=== PATIENT | male | born 1980 ===

== ENCOUNTER 2020-04-19 09:20 | Emergency (ER) | payer MEDICAID, SELFPAY ==
[2020-04-19 09:28] VITALS: BP 107/76; PULSE 94; RESP 14; TEMP 36.3; O2SAT 96; BMI 25.7
--- NOTE | 2020-04-19 09:44 | PC.NURSE ---
pt changed over by security. placed in hospital clothes. belongings to [facility].
--- NOTE | 2020-04-19 11:17 | MHC.RECOVSUP ---
Recovery Support note: Patient is a 40 year old Burmese speaking male who presented to [facility] via EMS after an accidental overdose. Patient reported he is interested in going to detox. Patient reports he is not on any medication at this time. Patient information has been sent to [facility]. They report that they have an admission open at 1500 and that patient will be able to get the bed if there are no issues with his labs. This speech writer will fax patient labs to [facility] (Fax - [phone]) when they are available.
--- NOTE | 2020-04-19 11:32 | PC.NURSE ---
plan for pt to go to detox
--- NOTE | 2020-04-19 12:16 | ED_ITS ---
HPI - Overdose General Chief Complaint: Overdose Stated Complaint: od Time Seen by Provider: 04/19/20 10:53 Source: EMS Mode of arrival: EMS Limitations: no limitations History of Present Illness HPI Narrative: 40-year-old male with history of anxiety disorder, depression, hepatitis and history of heroin abuse family called EMS after becoming unresponsive upon EMS arrival patient was unresponsive and respiratory rate of 6 a given Narcan with immediate response admitted to doing 5 bags of heroin for recreation and to ?get high? he denies any intentional overdose or SI HI. Patient has history of similar visits in the past. POC 202 for EMS. complaint: accidental overdose Timing confirmed by: spouse and family member Intent: other (To get high) Treatments Prior to Arrival: none Related Data Allergies Allergy/AdvReac Type Severity Reaction Status Date / Time No Known Allergies Allergy Unverified 12/07/19 19:39 [No Known Allergies*] Review of Systems Review of Systems: Constitutional: No Weight loss, No Fever, No Chills, No Night Sweats, No Fatigue, No Malaise ENT/Mouth: No Hearing loss, No Ear Pain, No Nasal Congestion, No Sinus Pain, No Hoarseness, No sore throat, No Rhinorrhea, No Swallowing Difficulty . Eyes: No Eye Pain, No Swelling, No Redness, No Foreign Body, No Discharge, No Vision Changes Cardiovascular: No Chest Pain, No SOB, No Dyspnea on Exertion, No Orthopnea, No Edema, No Palpitations Respiratory: No Cough, No Sputum, No Wheezing, No Smoke Exposure, No Dyspnea Gastrointestinal: No Nausea, No Vomiting, No Diarrhea, No Constipation, No abdominal Pain, No Hematochezia, No Melena Genitourinary: No Dysuria, No Urinary Frequency, No Hematuria, No Urinary Incontinence, No Urgency, No Flank Pain Musculoskeletal: No joint pain, No Myalgias, No Joint Swelling Skin: No Skin Lesions, No rash Neuro: No Weakness, No Numbness, No Paresthesias, No Loss of Consciousness, No Dizziness, No Headache Psych: No Social Issues Heme/Lymph: No Bruising, No Bleeding,No Lymphadenopathy Endocrine: No Polyuria, No Polydipsia, No Temperature Intolerance Yes all other systems are reviewed and are negative PMFSH Social History Social History Alcohol intake: unknown Smoking Status: Unknown if ever smoked Use of substances other than those prescribed or required for medical reasons: Refusing to respond Substance Use Type: Heroin Advance Directives: No Advance Directives Information Provided: Yes Physical Exam Vital Signs: Vital Signs: Last Vital Signs Temp 97.3 F 04/19/20 09:28 Pulse 94 04/19/20 09:28 Resp 14 04/19/20 09:28 BP 107/76 04/19/20 09:28 Pulse Ox 96 04/19/20 09:28 Body Mass Index 25.7 Reviewed Const: General: cooperative; No acute distress or intoxicated appearing Nutritional Appearance: average body habitus Orientation/consciousness: patient oriented x3 HENMT: Head: Yes normal to inspection Ears: hearing grossly normal bilaterally Eyes: General: appearance normal, both eyes and all related structures Vis ual Cloud: normal visual cloud by confrontation Neck: Neck: Yes normal visual inspection, No positive Brudzinski's sign, No positive Kernig's sign and No tender Thyroid: Thyroid normal Chest: Chest palpation & inspection: normal inspection of the chest Resp: Effort & Inspection: normal respiratory effort Auscultation: clear to auscultation bilaterally Cardio: Jugular venous distension: no JVD Rhythm: regular rhythm Heart sounds: S1 normal heart sound present and S2 normal heart sound present GI: Inspection: Yes normal to inspection Percussion: Yes normal to percussion Auscultation: normal bowel sounds : General: Yes no CVA tenderness Back/Spine/Pelvis: Back: no CVA tenderness Skin: General skin exam: no rashes or lesions noted Neuro: General: patient oriented x3 Extrem: General: Yes normal to inspection Course Course Course Narrative: In review 40-year-old male with history of anxiety disorder, depression, hepatitis and history of heroin abuse presenting with intentional overdose reports use 5 bags for recreational use. Did require 2 mg of IV Narcan for reversal with immediate response awoke alert and oriented x3. Upon arrival initially refused to provide any history admits now to using 5 bags. Initially declined detox services but after my conversation of these agreeable. Will monitor for 1 hour and discuss case with substance abuse counselor to see if he can get him directly to detox from here. Reevaluation(s) Reevaluation #1: Case discussed with John substance use counselor has a bed at [facility] for 1500 requests that we do some screening labs patient offers no complaints. Screening labs as well as COVID-19 ordered. Reevaluation #2: Screening labs shows leukocytosis likely from the OD and not infection pathology. Chest x-ray negative. slightly elevated LFTs has history of hepatitis he offers no complaints of pain, T bili/lipase within normal limits. Will need further monitoring evaluation this on an outpatient basis. Medically clear for detox intake. Reevaluation #3: During his intake with the detox Center he reported desire for SI and told him that the OD was intentional does feeling the intake. I was informed of this by [facility] the substance abuse counselor patient will now require crisis evaluation. [facility] observation and crisis evaluation. Additional Reevaluation(s): Sign out to night team pending crisis evaluation and disposition. MDM - Overdose Medical Records Attestation: I reviewed the patient's medical records. Lab Data Attestation: I reviewed the patient's lab results. Result diagrams: 04/19/20 12:30 04/19/20 12:30 Labs: Lab Results 04/19/20 04/19/20 04/19/20 Range/Units 12:30 12:30 12:30 WBC 15.9 H (4.8-10.8) X10*3/uL RBC 4.34 L (4.60-5.80) X10*6/uL Hgb 12.4 L (14.0-18.0) g/dl Hct 39.9 L (42-52) % MCV 91.9 (80-98) fL MCH 28.6 (27.0-33.0) pg MCHC 31.1 (31.0-36.0) g/dl RDW 13.8 (11.0-16.0) % Plt Count 210 (160-400) X10*3/uL MPV 9.2 L (9.4-12.4) fL Immature Gran % (Auto) 0.4 (0.0-0.4) % Neut % (Auto) 88.5 H (45-73) % Lymph % (Auto) 5.9 L (20-40) % Childress % (Auto) 5.0 (2-11) % Eos % (Auto) 0.1 (0-4) % Baso % (Auto) 0.1 (0-2) % Lymph # (Auto) 0.9 L (1.2-4.9) X10*3/uL Childress # (Auto) 0.8 (0.1-1.2) X10*3/uL Eos # (Auto) 0.0 (0.0-0.4) X10*3/uL Baso # (Auto) 0.0 (0.0-0.2) X10*3/uL Abs Immat Gran (auto) 0.06 H (0.00-0.03) X10*3/uL Absolute Neuts (auto) 14.1 H (2.0-8.3) X10*3/uL Absolute Nucleated RBC 0.000 (0.0-0.012) X10*3/uL Nucleated RBC % (auto) 0.0 (0.0-0.2) /100WBC Sodium 142 (135-145) mmol/L Potassium 4.4 (3.3-5.1) mmol/L Chloride 106 (96-108) mmol/L Carbon Dioxide 29 (22-29) mmol/L Anion Gap 11 L (12-20) BUN 26 H (9-16) mg/dL Creatinine 1.31 (0.5-1.4) mg/dL Estim Creat Clear Calc 62.1 Estimated GFR > 60 Random Glucose 87 (60-115) mg/dL Calcium 8.4 (8.4-10.2) mg/dL Total Bilirubin 0.4 (0.0-1.0) mg/dL AST 269 H (5-37) U/L ALT 275 H (0-40) U/L Alkaline Phosphatase 94 (39-117) U/L Total Protein 6.2 L (6.5-8.0) g/dL Albumin 3.9 (3.5-5.0) g/dL Lipase 26 (8-78) U/L Urine Opiates Screen (Not Detect) Ur Barbiturates Screen (Not Detect) Ur Phencyclidine Scrn (Not Detect) Ur Amphetamines Screen (Not Detect) U Benzodiazepines Scrn (Not Detect) Urine Cocaine Screen (Not Detect) U Marijuana (THC) Screen (Not Detect) Ethyl Alcohol mg/dL COVID-19 (THU) Negative (Negative) COVID-19 Clin Com See Note 04/19/20 04/19/20 Range/Units 12:30 15:16 WBC (4.8-10.8) X10*3/uL RBC (4.60-5.80) X10*6/uL Hgb (14.0-18.0) g/dl Hct (42-52) % MCV (80-98) fL MCH (27.0-33.0) pg MCHC (31.0-36.0) g/dl RDW (11.0-16.0) % Plt Count (160-400) X10*3/uL MPV (9.4-12.4) fL Immature Gran % (Auto) (0.0-0.4) % Neut % (Auto) (45-73) % Lymph % (Auto) (20-40) % Childress % (Auto) (2-11) % Eos % (Auto) (0-4) % Baso % (Auto) (0-2) % Lymph # (Auto) (1.2-4.9) X10*3/uL Childress # (Auto) (0.1-1.2) X10*3/uL Eos # (Auto) (0.0-0.4) X10*3/uL Baso # (Auto) (0.0-0.2) X10*3/uL Abs Immat Gran (auto) (0.00-0.03) X10*3/uL Absolute Neuts (auto) (2.0-8.3) X10*3/uL Absolute Nucleated RBC (0.0-0.012) X10*3/uL Nucleated RBC % (auto) (0.0-0.2) /100WBC Sodium (135-145) mmol/L Potassium (3.3-5.1) mmol/L Chloride (96-108) mmol/L Carbon Dioxide (22-29) mmol/L Anion Gap (12-20) BUN (9-16) mg/dL Creatinine (0.5-1.4) mg/dL Estim Creat Clear Calc Estimated GFR Random Glucose (60-115) mg/dL Calcium (8.4-10.2) mg/dL Total Bilirubin (0.0-1.0) mg/dL AST (5-37) U/L ALT (0-40) U/L Alkaline Phosphatase (39-117) U/L Total Protein (6.5-8.0) g/dL Albumin (3.5-5.0) g/dL Lipase (8-78) U/L Urine Opiates Screen POSITIVE H (Not Detect) Ur Barbiturates Screen Not Detected (Not Detect) Ur Phencyclidine Scrn Not Detected (Not Detect) Ur Amphetamines Screen Not Detected (Not Detect) U Benzodiazepines Scrn Not Detected (Not Detect) Urine Cocaine Screen POSITIVE H (Not Detect) U Marijuana (THC) Screen Not Detected (Not Detect) Ethyl Alcohol < 10 mg/dL COVID-19 (THU) (Negative) COVID-19 Clin Com Imaging Data Chest x-ray: Radiologist's impression: [facility] [place] [id number] ReportSigned Patient: Javad Conklin PMR#: [id number]: [id number]:[id number]/Sex: 40 / MADM Date: 04/19/20Loc: DAVID.EDAttending Dr: Ordering Physician: Cachorro Worley NP Date of Service: 04/19/20 Procedure(s): XR chest 1V Accession Number(s): [id number] cc: Cachorro Worley SUPERVISOR [employer]IN MACHINE~ EXAMINATION: XR CHEST CLINICAL INFORMATION: OD COMPARISON: None TECHNIQUE: Frontal view of the chest was obtained. FINDINGS: The lungs are well-expanded and clear of acute process. The heart size and pulmonary vascularity is normal. No gross bony abnormality seen. XR/XR chest 1V IMPRESSION: Unremarkable chest exam. Dictated By:LANNY CHANCE MDSigned By:<Electronically signed by LANNY CHANCE MD in OV>04/19/20 1442 DD/ 1343TD/TT: Conservation [employer] Heritage Architect: [facility] Discharge Plan Discharge Clinical Impression: Drug overdose, Depression
[2020-04-19 12:40] LABS: MANUAL DIFF FLAG NO
[2020-04-19 12:42] LABS: Basophils Percent Auto 0.1 % (0-2); Eosinophils Percent Auto 0.1 % (0-4); Hematocrit 39.9 % (42-52); Hemoglobin 12.4 g/dl (14.0-18.0); Imm Gran Abs Auto 0.06 X10*3/uL (0.00-0.03); Imm Gran Pct Auto 0.4 % (0.0-0.4); Lymphocytes Absolute Auto 0.9 X10*3/uL (1.2-4.9); Lymphocytes Percent Auto 5.9 % (20-40); Mean Corpuscular HGB Conc 31.1 g/dl (31.0-36.0); Mean Corpuscular Hemoglobin 28.6 pg (27.0-33.0); Mean Corpuscular Volume 91.9 fL (80-98); Mean Platelet Volume 9.2 fL (9.4-12.4); Monocytes Absolute Auto 0.8 X10*3/uL (0.1-1.2); Neutrophils Absolute Auto 14.1 X10*3/uL (2.0-8.3); Neutrophils Percent Auto 88.5 % (45-73); Platelet Count 210 X10*3/uL (160-400); Red Blood Count 4.34 X10*6/uL (4.60-5.80); Red Cell Distribution Width 13.8 % (11.0-16.0); White Blood Count 15.9 X10*3/uL (4.8-10.8)
[2020-04-19 13:20] LABS: COVID-19 Test Negative (Negative)
[2020-04-19 13:21] LABS: Ethanol < 10 mg/dL
[2020-04-19 13:28] LABS: Alanine Aminotransferase 275 U/L (0-40); Albumin Level 3.9 g/dL (3.5-5.0); Alkaline Phosphatase 94 U/L (39-117); Anion Gap 11 (12-20); Aspartate Amino Transferase 269 U/L (5-37); Bilirubin Total 0.4 mg/dL (0.0-1.0); Blood Urea Nitrogen 26 mg/dL (9-16); Calcium 8.4 mg/dL (8.4-10.2); Carbon Dioxide 29 mmol/L (22-29); Chloride 106 mmol/L (96-108); Creatinine Clr Calc Pharmacy 62.1; Estimated Glomerular Filt Rate > 60; Glucose Random 87 mg/dL (60-115); Potassium 4.4 mmol/L (3.3-5.1); Sodium 142 mmol/L (135-145); Total Protein 6.2 g/dL (6.5-8.0)
--- NOTE | 2020-04-19 13:29 | MHC.RECOVSUP ---
Recovery Support note: Patient completed phone intake with [facility]. Patient reported to intake that he has AH/VH/SI. Patient reportedly said he intentionally overdosed yesterday and is consistently using enough heroin to overdose. Patient reported paranoia and had no future orientation. [facility] recommends that patient is referred to crisis, stating that they cannot accept patient at this time. ED staff aware.
--- NOTE | 2020-04-19 13:35 | PC.NURSE ---
Report recieved. Pt ambulated to pod with steady gait, pt to see N.
--- NOTE | 2020-04-19 13:43 | XR_ITS ---
EXAMINATION: XR CHEST CLINICAL INFORMATION: OD COMPARISON: None TECHNIQUE: Frontal view of the chest was obtained. FINDINGS: The lungs are well-expanded and clear of acute process. The heart size and pulmonary vascularity is normal. No gross bony abnormality seen. XR/XR chest 1V IMPRESSION: Unremarkable chest exam.
--- NOTE | 2020-04-19 14:00 | PC.NURSE ---
[facility] faxed and called.
[2020-04-19 14:38] LABS: Lipase 26 U/L (8-78)
[2020-04-19 16:15] LABS: Amphetamine Screen Urine Not Detected (Not Detect); Barbiturates, Urine Not Detected (Not Detect); Benzodiazepines Screen Urine Not Detected (Not Detect); Cannabinoid Screen Urine Not Detected (Not Detect); Cocaine Screen Urine POSITIVE (Not Detect); Opiate Screen Urine POSITIVE (Not Detect); Phencyclidine Screen Urine Not Detected (Not Detect)
[2020-04-19 18:05] VITALS: BP 121/52; PULSE 71; RESP 16; TEMP 36.6; O2SAT 89
[2020-04-20 00:02] VITALS: BP 119/64; PULSE 75; RESP 17; TEMP 36.9; O2SAT 98
[2020-04-20] MEDS: LORazepam 1 MG TABLET 2 MG PO (00:44)
--- NOTE | 2020-04-20 07:17 | PC.NURSE ---
Report received from EFREN Foster. Pt resting, resp unlabored.
[2020-04-20 09:56] VITALS: BP 99/59; PULSE 67; RESP 20; TEMP 36.8; O2SAT 97
--- NOTE | 2020-04-20 10:01 | PC.NURSE ---
Pt evaluated w/ interpretation present. Pt alert, affect even. Pt denies any symptoms other than generalized aching, states that he feels ready for discharge to [facility]. Report called to [place] to Denita Barrios. Pt aware that he will be transferred to [place] in the early afternoon.
--- NOTE | 2020-04-20 11:01 | PC.NURSE ---
Pt resting, resp unlabored
[2020-04-20 12:00] VITALS: RESP 16
--- NOTE | 2020-04-20 12:24 | PC.NURSE ---
Pt given discharge instruction w/ interpretation. Pt verbalized understanding, no concerns reported. i called for pt.
--- NOTE | 2020-04-20 13:13 | PC.NURSE ---
Pt escorted to waiting room, taxi cab awaiting pt to transport pt to [facility]. Pt gait steady, affect even, no concerns reported.
== END 2020-04-20 13:26 | disposition home or self-care (01) ==
PROVIDERS: Nurse Practitioner Primary Care; Emergency Provider Emergency Medicine
DX: T40.1X1A Poisoning by heroin, accidental (unintentional), initial encounter (principal); Y92.9 Unspecified place or not applicable; F33.1 Major depressive disorder, recurrent, moderate; F41.9 Anxiety disorder, unspecified; F11.10 Opioid abuse, uncomplicated; Z20.822 Contact with and (suspected) exposure to COVID-19
CPT/HCPCS: 36415; 71045; 80053; 80307; 80320; 83690; 85025; 87635; 99285

== ENCOUNTER 2020-05-27 19:51 | Emergency (ER) | payer MEDICAID, SELFPAY ==
[2020-05-27 19:55] VITALS: BP 131/94; PULSE 90; RESP 16; TEMP 36.3; O2SAT 100; BMI 25.9
--- NOTE | 2020-05-27 20:12 | ED.OVERDOSE ---
HPI - Overdose General Chief Complaint: Overdose Stated Complaint: od Time Seen by Provider: 05/27/20 20:11 Source: patient and EMS Mode of arrival: EMS Limitations: no limitations History of Present Illness HPI Narrative: Patient was brought by EMS for intoxicated after using 2 bags of heroin was in [place] somebody else according to him was with friends and dose of also patient has some alcohol earlier today. Patient been sober for a while and uses heroin occasionally patient received 3 doses of 4 mg intranasal Narcan by EMS on arrival patient is alert oriented x3 saturating 100% on room air no history of fall or head injury Related Data Allergies Allergy/AdvReac Type Severity Reaction Status Date / Time No Known Allergies Allergy Unverified 12/07/19 19:39 [No Known Allergies*] Review of Systems Review of Systems: Yes all other systems are reviewed and are negative [facility] Social History Social History Alcohol intake: unknown Smoking Status: Unknown if ever smoked Substance Use Type: Heroin Advance Directives: No Advance Directives Information Provided: Yes Physical Exam Vital Signs: Vital Signs: Last Vital Signs Temp 97.4 F 05/27/20 19:55 Pulse 90 05/27/20 19:55 Resp 16 05/27/20 19:55 BP 131/94 H 05/27/20 19:55 Pulse Ox 100 05/27/20 19:55 Body Mass Index 25.9 Appearance: Alert. Oriented X3. No acute distress. Eyes: Pupils equal, round and reactive to light. ENT: Pharynx normal. Neck: Normal inspection. Neck supple. CVS: Normal heart rate and rhythm. Pulses normal. Respiratory: No respiratory distress. Breath sounds normal. Abdomen: Soft and nontender. Bowel sounds are present, no mass palpable, no CVA tenderness Skin: Skin warm and dry. Normal skin color. Normal skin turgor. Extremities: No lower extremity edema. Neuro: Oriented X 3. No motor deficit. No sensory deficit. MDM - Overdose MDM Narrative Medical decision making narrative: Patient alert awake since arrived to the ER saturating 100 % at room air would like to go home will give him Narcan to take home refused to go to detox Differential Diagnosis Differential diagnosis: Likely poisoning by opiate or related narcotic Discharge Plan Discharge Clinical Impression: Opiate overdose Patient Disposition: Home, Self-Care Instructions: Opioid Use Disorder (ED) Additional Instructions: Follow-up with detox Interventions: ED Discharge Assessment Last Done: 05/27/20 21:07 Discharge Date/Time: 05/27/20 21:08
== END 2020-05-27 21:08 | disposition home or self-care (01) ==
PROVIDERS: Emergency Provider Internal Medicine
DX: T40.1X1A Poisoning by heroin, accidental (unintentional), initial encounter (principal)
CPT/HCPCS: 99283

== ENCOUNTER 2020-06-23 22:34 | Emergency (ER) | payer MEDICAID, SELFPAY ==
[2020-06-23 22:48] VITALS: BP 113/70; PULSE 86; RESP 16; TEMP 36.8; O2SAT 97; BMI 25.2
--- NOTE | 2020-06-23 23:13 | ED.OVERDOSE ---
HPI - Overdose General Chief Complaint: Overdose Stated Complaint: od Time Seen by Provider: 06/23/20 23:13 Source: patient Mode of arrival: EMS Limitations: no limitations History of Present Illness HPI Narrative: Patient history of substance abuse use heroin and cocaine for long-time been here multiple times for same overdosed today he uses about 6 bags of heroin and cocaine found unresponsive received 4 mg of Narcan IM by EMS now back to baseline alert oriented x3 fully awake saturating 97% at room air complaint: accidental overdose Related Data Allergies Allergy/AdvReac Type Severity Reaction Status Date / Time No Known Allergies Allergy Unverified 12/07/19 19:39 [No Known Allergies*] [facility] Social History Social History Alcohol intake: unknown Smoking Status: Unknown if ever smoked Substance Use Type: Heroin Advance Directives: No Advance Directives Information Provided: Yes Physical Exam Vital Signs: Vital Signs: Last Vital Signs Temp 98.2 F 06/23/20 22:48 Pulse 86 06/23/20 22:48 Resp 16 06/23/20 22:48 BP 113/70 06/23/20 22:48 Pulse Ox 97 06/23/20 22:48 Body Mass Index 25.2 Appearance: Alert. Oriented X3. No acute distress. Eyes: Pupils equal, round and reactive to light. ENT: Pharynx normal. Neck: Normal inspection. Neck supple. CVS: Normal heart rate and rhythm. Pulses normal. Respiratory: No respiratory distress. Breath sounds normal. Abdomen: Soft and nontender. Bowel sounds are present, no mass palpable, no CVA tenderness Skin: Skin warm and dry. Normal skin color. Normal skin turgor. Extremities: No lower extremity edema. Neuro: Oriented X 3. No motor deficit. No sensory deficit. MDM - Overdose MDM Narrative Medical decision making narrative: 23:35 patient alert oriented x3 ambulatory here saturating 98% at room air does want to stay longer will give him Narcan to take home refused to go to detox Differential Diagnosis Differential diagnosis: Likely poisoning by opiate or related narcotic Medical Records Attestation: I reviewed the patient's medical records. Discharge Plan Discharge Clinical Impression: Drug overdose Qualifiers: Encounter type: initial encounter Injury intent: accidental or unintentional Qualified Code(s): T50.901A - Poisoning by unspecified drugs, medicaments and biological substances, accidental (unintentional), initial encounter Patient Disposition: Home, Self-Care Instructions: Opioid Use Disorder (ED) Additional Instructions: Follow-up with detox
--- NOTE | 2020-06-23 23:27 | PC.NURSE ---
PT REFUSED TO CHANGE, BECAME VERBALLY AGRESSIVE WITH MD. PT WAS TOLD HE COULD LEAVE AT 11:30 BY MD. PT NOW PACING IN HALLWAY. PT ASKED SECURITY HOW HE WAS GOING TO GET HOME. PT NOW REQUESTING A PHONE TO CALL MOTHER.
[2020-06-23] MEDS: Naloxone HCl Nasal TAKE HOME 4 MG SPRAY NOSTRILALT (23:37)
[2020-06-23 23:38] VITALS: RESP 20
--- NOTE | 2020-06-23 23:38 | PC.NURSE ---
Pt calling his mom, becoming angry as she is unable to provide him with transportation home. Pt given Narcan to take home by this RN but pt refusing due to upset. Pt refusing VS. Pt provided with DC paperwork but threw paperwork on the floor as he was leaving the ED.
== END 2020-06-23 23:40 | disposition home or self-care (01) ==
PROVIDERS: Emergency Provider Internal Medicine
DX: R40.4 Transient alteration of awareness (principal); T40.1X1A Poisoning by heroin, accidental (unintentional), initial encounter; T40.5X1A Poisoning by cocaine, accidental (unintentional), initial encounter; Y92.9 Unspecified place or not applicable
CPT/HCPCS: 99284

== ENCOUNTER 2020-08-11 14:46 | Emergency (ER) | payer MEDICAID, SELFPAY ==
[2020-08-11 15:01] VITALS: BP 101/69; BP 116/74; PULSE 80; PULSE 84; RESP 18; TEMP 37.1; O2SAT 98; BMI 45.3
[2020-08-11] MEDS: ondansetron HCL 4 MG/2 ML VIAL IVPUSH (15:26)
[2020-08-11] MEDS: 0.9 % Sodium Chloride 1,000 ML 999 ML IV (15:31)
--- NOTE | 2020-08-11 15:31 | PC.NURSE ---
Pt medicated for nausea and with IVF. Pt awake and alert at this time .Lungs CTA
[2020-08-11 15:54] VITALS: BP 97/57; PULSE 80; RESP 16; O2SAT 98
--- NOTE | 2020-08-11 16:04 | MHC.RECOVSUP ---
Recovery Support note: Patient is a 40 year old Kyrgyz speaking male who presented to [facility] ED via EMS after an accidental heroin overdose. This global technical writer met with patient with an [facility] vending manager to discuss his substance use and treatment options. Patient reports he does not remember what happened but he does report snorting heroin. Patient reports he was previously on Suboxone and was sober for approximately one month. Patient reports he was prescribed Suboxone after going to detox. Discussed [facility] and [facility] Suboxone with patient. Patient was familiar with these resources. Patient reports he would be willing to go to detox but he only wants to go to a local facility. Explained to patient that he may have to go tomorrow as a walk-in if no beds are available at this time and that going as a walk-in is his best chance of getting in. Patient acknowledged. This global technical writer contacted [facility] and spoke with nursing staff. There are no male beds at this time and they instructed to call back after 1999. This global technical writer will inform patient of this and provide him with information on [facility] where he can go tomorrow to work on detox placement.
--- NOTE | 2020-08-11 17:01 | ED_ITS ---
HPI - Overdose General Chief Complaint: Overdose Stated Complaint: HEROIN OD,8MG NARCAN GIVEN W/GOOD RESULTS Time Seen by Provider: 08/11/20 14:55 Source: patient Mode of arrival: ambulatory Limitations: no limitations History of Present Illness HPI Narrative: Patient presents ED with accidental overdose. Patient states he sniffs heroin. Patient is not suicidal homicidal. Patient interested in detox Related Data Allergies Allergy/AdvReac Type Severity Reaction Status Date / Time No Known Allergies Allergy Verified 08/11/20 15:00 [No Known Allergies*] Review of Systems Review of Systems: Yes all other systems are reviewed and are negative Constitutional: Constitutional: Reports as per HPI and Reports no additional constitutional complaints Eyes: Eyes: Reports as per HPI and Reports no additional eye complaints ENT: Reports system reviewed and no additional complaints, except as documented and Reports as per HPI Cardiovascular: Cardiovascular: Reports as per HPI and Reports no additional cardiovascular complaints Respiratory: Respiratory: Reports as per HPI and Reports no additional respiratory complaints Gastrointestinal: Gastrointestinal: Reports as per HPI and Reports no additional gastrointestinal complaints Genitourinary: Genitourinary: Reports no additional male genitourinary complaints and Reports as per HPI Musculoskeletal: Musculoskeletal: Reports no additional musculoskeletal complaints and Reports as per HPI Neurologic: Reports system reviewed and no additional complaints, except as documented and Reports as per HPI Psychiatric: Psychiatric: Reports no additional psychiatric complaints and Reports as per HPI PMF Past Medical History Medical History (Updated 08/11/20 @ 17:07 by POLLY Barnes) Patient denies medical problems Social History Social History Alcohol intake: unknown Smoking Status: Unknown if ever smoked Substance Use Type: Heroin Advance Directives: No Advance Directives Information Provided: No Physical Exam Vital Signs: Vital Signs: Last Vital Signs Temp 98.7 F 08/11/20 15:01 Pulse 80 08/11/20 15:54 Resp 16 08/11/20 15:54 BP 97/57 L 08/11/20 15:54 Pulse Ox 98 08/11/20 15:54 Body Mass Index 45.3 Const: General: cooperative, healthy appearing, comfortable, no acute distress, well developed, alert, awake and Physically active Orientation/consciousness: patient oriented x3 HENMT: Head: Yes normal to inspection, Yes No palpable skull fracture present, Yes normocephalic, Yes atraumatic and No abrasion Eyes: General: appearance normal, both eyes and all related structures Neck: Neck: Yes normal visual inspection, Yes full ROM, Yes no lymphadenopathy, Yes no meningeal signs, Yes trachea midline, Yes supple and No tender Chest: Chest palpation & inspection: normal inspection of the chest and normal palpation of entire chest wall Resp: Effort & Inspection: normal respiratory effort and able to speak in complete sentences Auscultation: clear to auscultation bilaterally Cardio: Jugular venous distension: no JVD Heart sounds: S1 normal heart sound present and S2 normal heart sound present GI: Inspection: Yes normal to inspection and No abdominal wall ecchymosis Palpation (GI): Soft to palpation, not firm, nontender, no guarding and not rigid : General: No CVA tenderness and Yes no CVA tenderness Back/Spine/Pelvis: Back: no CVA tenderness, No CVA tenderness and No back tenderness Skin: General skin exam: no rashes or lesions noted and elasticity normal Neuro: General: patient oriented x3, no meningeal signs and CN's II-XI intact bilaterally Cranial nerves: Yes CN's II-XII intact bilaterally Extrem: General: Yes normal to inspection and Yes full ROM Psych: Appearance: grossly normal, well kempt and not disheveled Course Course Course Narrative: Patient given little fluid and Zofran due to vomiting from given Narcan. Reevaluation(s) Reevaluation #1: Patient alert oriented x3. motor coach chauffeur John spoke with him and patient will follow up with detox program tomorrow. Patient is not suicidal or homicidal. MDM - Overdose MDM Narrative Medical decision making narrative: Heroin overdose accidental Discharge Plan Discharge Clinical Impression: Drug overdose, Heroin abuse Patient Disposition: Home, Self-Care Instructions: Adult Overdose (ED), Opioid Use Disorder (ED) Additional Instructions: Regrese al servicio de urgencias inmediatamente si tiene dolor en el pecho, dificultad para respirar, ideaci?n suicida / homicida, alucinaciones auditivas / visuales, cualquier queja f?michelle o cualquier otro s?ntoma relacionado. Eva un seguimiento con el programa de desintoxicaci?n al que lo remitieron ma?estella. Print Language: Bengali
== END 2020-08-11 17:16 | disposition home or self-care (01) ==
PROVIDERS: Emergency Provider Emergency Medicine
DX: T40.1X1A Poisoning by heroin, accidental (unintentional), initial encounter (principal); Y92.9 Unspecified place or not applicable; F11.10 Opioid abuse, uncomplicated; Z71.51 Drug abuse counseling and surveillance of drug abuser
CPT/HCPCS: 96365; 96375; 99283; 99284; J2405

== ENCOUNTER 2020-09-11 12:39 | Emergency (ER) | payer MEDICAID, SELFPAY ==
[2020-09-11 12:44] VITALS: BP 136/76; PULSE 98; O2SAT 99
[2020-09-11 12:50] VITALS: BP 122/71; PULSE 81; RESP 14; TEMP 36.6; O2SAT 99; BMI 24.2
--- NOTE | 2020-09-11 13:00 | MHC.RECOVSUP ---
? Reason for consult:Continuity of care o Current location: [id number] o Identified substance use concern: Heroin - Overdose - Support ? Intervention: o Community resources provided o Harm reduction discussion ? Plan: o Patient to follow up with [facility] after discharge ? Additional information: Pt. is working and adamantly states: I want to leave . Pt. uncooperative and refuses service.
--- NOTE | 2020-09-11 13:12 | ED.OVERDOSE ---
HPI - Overdose General Chief Complaint: ETOH/Substance Use <POLLY Delacruz - Last Filed: 09/11/20 17:40> Stated Complaint: HEROIN OD 4MG NARCAN <POLLY Delacruz - Last Filed: 09/11/20 17:40> Time Seen by Provider: 09/11/20 13:12 <POLLY Delacruz - Last Filed: 09/11/20 17:40> Source: patient and EMS <POLLY Delacruz - Last Filed: 09/11/20 17:40> Mode of arrival: EMS <POLLY Delacruz - Last Filed: 09/11/20 17:40> Limitations: no limitations <POLLY Delacruz - Last Filed: 09/11/20 17:40> History of Present Illness HPI Narrative: 40 y/o male presenting via EMS with heroin overdose. He was found unresponsive, was given 4 mg IN narcan and rescue breathing was performed. He had improvement in respiratory status and mentation. Admits to heroin use on arrival. AAO x3 and conversant. He reports it was accidental and he wants to leave the ER and go back to work. <POLLY Delacruz - Last Filed: 09/11/20 17:40> MD complaint: accidental overdose <POLLY Delacruz - Last Filed: 09/11/20 17:40> Onset (ago): minute(s) <POLLY Delacruz - Last Filed: 09/11/20 17:40> Intent: unknown <POLLY Delacruz - Last Filed: 09/11/20 17:40> How Overdose Was Discovered: called family/friend <POLLY Delacruz - Last Filed: 09/11/20 17:40> Context: Accidental Overdose: wanted to get high <POLLY Delacruz - Last Filed: 09/11/20 17:40> Treatments Prior to Arrival: narcan <POLLY Delacruz - Last Filed: 09/11/20 17:40> Related Data Allergies/Adverse Reactions: Allergies Allergy/AdvReac Type Severity Reaction Status Date / Time No Known Allergies Allergy Verified 08/11/20 15:00 [No Known Allergies*] <POLLY Delacruz - Last Filed: 09/11/20 17:40> Review of Systems Review of Systems: Constitutional: No Fever, No Chills ENT/Mouth: No sore throat, No Rhinorrhea, No Swallowing Difficulty Cardiovascular: No Chest Pain, No SOB Respiratory: No Cough, No Sputum, No Wheezing, No dyspnea Gastrointestinal: No Nausea, No Vomiting, No Diarrhea, No abdominal Pain Musculoskeletal: No joint pain, No Myalgias Skin: No Skin Lesions, No rash Neuro: No Weakness, No Numbness, No Dizziness, No Headache Psych: No Anxiety/Panic, No Depression Heme/Lymph: No Bruising, No Lymphadenopathy <POLLY Delacruz - Last Filed: 09/11/20 17:40> [facility] Past Medical History Attestation statement: The following information was validated with the patient. <POLLY Delacruz - Last Filed: 09/11/20 17:40> Medical History: Medical History Patient denies medical problems <POLLY Delacruz - Last Filed: 09/11/20 17:40> Social History Social History: Social History Alcohol intake: unknown Substance Use Type: Heroin Advance Directives: No Advance Directives Information Provided: No <PLOLY Delacruz - Last Filed: 09/11/20 17:40> Physical Exam Vital Signs: Vital Signs: Last Vital Signs Temp 98 F 09/11/20 12:50 Pulse 81 09/11/20 12:50 Resp 14 09/11/20 12:50 BP 122/71 09/11/20 12:50 Pulse Ox 99 09/11/20 12:50 Body Mass Index 24.2 Appearance: Alert. Oriented X3. No acute distress. Eyes: Pupils equal, round and reactive to light. ENT: Pharynx normal. Neck: Normal inspection. Neck supple. CVS: Normal heart rate and rhythm. Pulses normal. Respiratory: No respiratory distress. Breath sounds normal. Abdomen: Soft and nontender. +BS x4 Skin: Skin warm and dry. Normal skin color. Normal skin turgor. No rashes. Extremities: No lower extremity edema. NO track ortiz seen. Neuro: Oriented X 3. No motor deficit. No sensory deficit. ambulatory and conversant <POLLY Delacruz - Last Filed: 09/11/20 17:40> Vital Signs: Last Vital Signs Temp 98 F 09/11/20 12:50 Pulse 81 09/11/20 12:50 Resp 14 09/11/20 12:50 BP 122/71 09/11/20 12:50 Pulse Ox 99 09/11/20 12:50 Body Mass Index 24.2 <Roland Crowell MD - Last Filed: 10/14/20 19:55> Course Course Course Narrative: 40 y/o male presenting with accidental heroin overdose requiring Narcan and ventilatory assistance on scene. Significant improvement with treatment. AAO x3 and wanting to leave. He is reluctant but eventually agreeable to stay for observation. Seen by track and field coach and declining detox. <POLLY Delacruz - Last Filed: 09/11/20 17:40> I have reviewed the chart <Roland Crowell MD - Last Filed: 10/14/20 19:55> Reevaluation(s) Reevaluation #1: Patient monitored in the ER for 2+ hours. Detox again discussed and patient declined. Information and resources provided. He is stable for discharge home. <POLLY Delacruz - Last Filed: 09/11/20 17:40> Discharge Plan Discharge Clinical Impression: Accidental heroin overdose <POLLY Delacruz - Last Filed: 09/11/20 17:40> Patient Disposition: Home, Self-Care <POLLY Delacruz - Last Filed: 09/11/20 17:40> Instructions: Opioid Use Disorder (ED) <POLLY Delacruz - Last Filed: 09/11/20 17:40> Additional Instructions: DO NOT USE HEROIN, YOU ALMOST TODAY FROM HEROIN OVERDOSE RECOMMEND DETOX <POLLY Delacruz - Last Filed: 09/11/20 17:40> Interventions: ED Discharge Assessment Last Done: 09/11/20 14:47 <POLLY Delacruz - Last Filed: 09/11/20 17:40> Discharge Date/Time: 09/11/20 14:48 <POLLY Delacruz - Last Filed: 09/11/20 17:40>
== END 2020-09-11 14:48 | disposition home or self-care (01) ==
PROVIDERS: Emergency Provider Emergency Medicine
DX: T40.1X1A Poisoning by heroin, accidental (unintentional), initial encounter (principal); Y92.9 Unspecified place or not applicable
CPT/HCPCS: 99283

== ENCOUNTER 2021-04-27 19:44 | Inpatient (IN) | payer MEDICAID, SELFPAY ==
--- NOTE | ~2021-04-27 | US_ITS ---
EXAMINATION: US VENOUS ULTRASOUND WITH DOPPLER LOWER EXTREMITY, BILATERAL CLINICAL INFORMATION: Swelling COMPARISON: None TECHNIQUE: Ultrasound of the deep veins is performed from the hip to the calf with compression sonography and color and pulse Doppler assessment. Spectral analysis with color-flow imaging is performed. FINDINGS: RIGHT: There is normal venous compression and respiratory variation and augmented flow. The visualized common femoral vein, superficial femoral vein, profunda femoral vein, popliteal vein, and the trifurcation region shows no evidence of deep venous thrombosis. There is no significant popliteal fossa cyst. LEFT: There is normal venous compression and respiratory variation and augmented flow. The visualized common femoral vein, superficial femoral vein, profunda femoral vein, popliteal vein, and the trifurcation region shows no evidence of deep venous thrombosis. There is no significant popliteal fossa cyst. US/US venous duplex LE BI IMPRESSION: No DVT demonstrated in the bilateral lower extremity.
--- NOTE | ~2021-04-27 | XR_ITS ---
EXAMINATION: XR PORTABLE CHEST CLINICAL INFORMATION: Shortness of breath. COMPARISON: 04/19/2020 TECHNIQUE: AP portable upright view of the chest FINDINGS: Lungs are clear. No consolidation, pneumothorax, or pleural effusion. Cardiac and mediastinal contours are normal. Pulmonary vasculature is unremarkable. Osseous structures are unremarkable. XR/XR chest 1V IMPRESSION: No acute cardiopulmonary findings
[2021-04-27 19:48] VITALS: BMI 24.2
[2021-04-27 19:53] VITALS: BP 134/111; PULSE 110; RESP 22; TEMP 35.5; O2SAT 93
--- NOTE | 2021-04-27 19:56 | ED.OVERDOSE ---
HPI - Overdose General Chief Complaint: ETOH/Substance Use <POLLY Delacruz Last Filed: 04/28/21 00:27> Stated Complaint: HEROIN OD,4MG NARCAN BY FAMILY,UNCOOPERATIVE <POLLY Delacruz Last Filed: 04/28/21 00:27> Time Seen by Provider: 04/27/21 19:54 <POLLY Delacruz Last Filed: 04/28/21 00:27> Source: patient, EMS and graphic production artist <POLLY Delacruz Last Filed: 04/28/21 00:27> Mode of arrival: EMS <POLLY Delacruz Last Filed: 04/28/21 00:27> Limitations: language barrier <POLLY Delacruz Last Filed: 04/28/21 00:27> History of Present Illness HPI Narrative: 41-year-old male with history of opioid use disorder, previously on Suboxone who presents to the ER for evaluation after he was found unresponsive by his mother at home. His mother attempted to wake him up by putting ice cubes down his pants without effect. She called 911 EMS gave him 4 mg of intranasal Narcan with good effect. Patient arrives to the ER she ring and freezing. He is awake and alert. He wants detox. He denies any recollection of the events surrounding and does not know how much heroin he used today. Upon review of records he had 4 ER visits for accidental overdose in 2020. <POLLY Delacruz - Last Filed: 04/28/21 00:27> MD complaint: intentional overdose <POLLY Delacruz Last Filed: 04/28/21 00:27> Onset (ago): unknown <POLLY Delacruz Last Filed: 04/28/21 00:27> Intent: unwilling to say <POLLY Delacruz Last Filed: 04/28/21 00:27> How Overdose Was Discovered: family/friend present at time <POLLY Delacruz Last Filed: 04/28/21 00:27> Context: Accidental Overdose: wanted to get high <POLLY Delacruz Last Filed: 04/28/21 00:27> Treatments Prior to Arrival: narcan <POLLY Delacruz Last Filed: 04/28/21 00:27> Related Data Allergies/Adverse Reactions: Allergies Allergy/AdvReac Type Severity Reaction Status Date / Time No Known Allergies Allergy Verified 08/11/20 15:00 [No Known Allergies*] <POLLY Delacruz - Last Filed: 04/28/21 00:27> Review of Systems Review of Systems: Constitutional: No Fever, + Chills Eyes: No Eye Pain, No Swelling, + Redness Cardiovascular: No Chest Pain, No SOB, No Orthopnea, No Edema Respiratory: No Cough, No Sputum, No Wheezing, No dyspnea Gastrointestinal: No Nausea, No Vomiting, No Diarrhea, No abdominal Pain Genitourinary: No Dysuria, No Urinary Frequency, No Hematuria Musculoskeletal: + joint pain, +Myalgias Skin: No Skin Lesions, No rash Neuro: No Weakness, No Numbness, No Dizziness, + Headache Psych: No Anxiety/Panic, No Depression Heme/Lymph: No Bruising, No Lymphadenopathy Endocrine: No Polyuria, No Polydipsia <POLLY Delacruz - Last Filed: 04/28/21 00:27> [facility] Past Medical History Medical History: Medical History Patient denies medical problems <POLLY Delacurz - Last Filed: 04/28/21 00:27> Social History Social History: Social History Alcohol intake: current Patient Tobacco Use Status: Current everyday Tobacco user Use of substances other than those prescribed or required for medical reasons: Yes Substance Use Type: Crack/Cocaine, Heroin, Marijuana and Opiates Advance Directives: No <POLLY Delacruz Last Filed: 04/28/21 00:27> Physical Exam Vital Signs: Vital Signs: Last Vital Signs Temp 98.9 F 04/27/21 22:30 Pulse 63 04/28/21 03:59 Resp 16 04/28/21 03:59 BP 92/69 04/28/21 03:59 Pulse Ox 96 04/28/21 03:59 BMI result Body Mass Index 24.2 <POLLY Delacruz Last Filed: 04/28/21 00:27> Appearance: Alert. Oriented X3. Shivering Eyes: Pupils equal, round and reactive to light. Left eye with scleral injection medially ENT: Pharynx normal. Neck: Normal inspection. Neck supple. CVS: Tachycardic, regular rhythm Pulses normal. Respiratory: Mild respiratory distress with increased respiratory rate 22 Breath sounds normal. Abdomen: Soft and nontender. +BS x4 Skin: Skin cool and dry. Normal skin color. Normal skin turgor. No rashes. Extremities: No lower extremity edema. Atraumatic x4, no evidence of track ortiz. Neuro: Oriented X 3. Moves all extremities, intermittently following commands but cold and keeps pulling blankets up over himself, not fully cooperative. <POLLY Delacruz - Last Filed: 04/28/21 00:27> Course Course Course Narrative: 41-year-old male with history of opiate use disorder previously on Suboxone who presents to the ER after being found unresponsive after using drugs today. He required 4 mg of intranasal Narcan by police with improvement in his mental status. This is his 5th ER visit for overdose in the last year. He arrives to the ER she ring and cold, no other physical complaints. He does not recall anything about the events of today, including how much drugs he used or the route. He is awake and alert. Will monitor closely in the emergency department. <POLLY Delacruz - Last Filed: 04/28/21 00:27> Reevaluation(s) Reevaluation #1: 8:17 pm - unable to read a oral or axillary temperature. Rectal temperature was obtained and 91.9 degrees. Most likely environmental exposure. He reports being outside. Doubt sepsis. Will place on [facility], give warm IVF, check lab workup including lactic acid and blood cultures. 9:21pm - lactic acid 6.1. concern for possible severe sepsis vs ?seizure. will give 30cc/kg IVF resuscitation and cover with broad spectrum abx given his drug use history, unknown if IVDA and no track ortiz noted on examination. <POLLY Delacruz - Last Filed: 04/28/21 00:27> Reevaluation #2: 9:48: patient reporting inability to move his right leg. On exam he is able to bend both of his knees and move his toes but he reports severe pain. He soft tissues and all joints are tender. He has no spinal tenderness. It is possible the patient may have a epidural or paraspinous abscess - labs are still pending. Will re-examine again, case d/w Dr. Perez 10:27 - now normothermic. Tami hugger removed. He is able to flex and extend his legs at the knee with pain in all of my muscles - CRP and ESR are normal. less likely spinal abscess 12:02 - LE mobility and pain improved. patient feeling much better. repeat lactic pending. still interested in detox. CARE team aware <POLLY Delacruz - Last Filed: 04/28/21 00:27> Reevaluation #3: 12:23 - lactic normalized after IVF. he received a total of 3L. no need to repeat CPK. medically cleared at this time. Physician observation started at 12:23. Patient placed in physician observation because patient is awaiting CARE team evaluation for the possible detox placement At the time observation was started patient's vital signs were stable. Patient is alert and oriented. Neuro exam is non-focal. CV: RRR and lungs are clear. Will continue to monitor. <POLLY Delacruz - Last Filed: 04/28/21 00:27> Consultations Consultation #1: CARE team <POLLY Delacruz - Last Filed: 04/28/21 00:27> MDM - Overdose Lab Data Result diagrams: : 04/27/21 20:53 04/27/21 20:53 <POLLY Delacruz - Last Filed: 04/28/21 00:27> Labs: Lab Results 04/27/21 04/27/21 04/27/21 Range/Units 20:49 20:53 20:53 WBC 15.9 H (4.8-10.8) X10*3/uL RBC 5.09 (4.60-5.80) X10*6/uL Hgb 14.4 (14.0-18.0) g/dl Hct 45.9 (42.0-52.0) % MCV 90.2 (80.0-98.0) fL MCH 28.3 (27.0-33.0) pg MCHC 31.4 (31.0-36.0) g/dl RDW 13.3 (11.0-16.0) % Plt Count 198 (160-400) X10*3/uL MPV 10.0 (9.4-12.4) fL Immature Gran % (Auto) 0.4 (0.0-0.4) % Neut % (Auto) 91.6 H (45-73) % Lymph % (Auto) 4.8 L (20-40) % [place] % (Auto) 3.0 (2-11) % Eos % (Auto) 0.1 (0-4) % Baso % (Auto) 0.1 (0-2) % Lymph # (Auto) 0.8 L (1.2-4.9) X10*3/uL [place] # (Auto) 0.5 (0.1-1.2) X10*3/uL Eos # (Auto) 0.0 (0.0-0.4) X10*3/uL Baso # (Auto) 0.0 (0.0-0.2) X10*3/uL Abs Immat Gran (auto) 0.07 H (0.00-0.03) X10*3/uL Absolute Neuts (auto) 14.6 H (2.0-8.3) x10*3/uL Absolute Nucleated RBC 0.000 (0.0-0.012) X10*3/uL Nucleated RBC % (auto) 0.0 (0.0-0.2) /100WBC Smear Tech's Comments VERIFIED ESR (0-15) MM/HR Sodium 143 (135-145) mmol/L Potassium 4.7 (3.3-5.1) mmol/L Chloride 107 (96-108) mmol/L Carbon Dioxide 24 (22-29) mmol/L Anion Gap 17 (12-20) BUN 26 H (9-16) mg/dL Creatinine 1.43 H (0.5-1.4) mg/dL Estim Creat Clear Calc 60.7 Estimated GFR 54 Random Glucose 165 H D (60-115) mg/dL Lactic Acid (0.5-2.0) mmol/L Lactic Acid F/U @ 2Hr (0.5-2.0) mmol/L Calcium 9.4 D (8.4-10.2) mg/dL Magnesium 2.4 (1.6-2.6) mg/dL Total Bilirubin 0.5 (0.0-1.0) mg/dL Direct Bilirubin 0.2 (0.0-0.5) mg/dL AST 93 H (5-37) U/L ALT 79 H (0-40) U/L Alkaline Phosphatase 72 D (39-117) U/L Total Creatine Kinase (38-174) U/L C-Reactive Protein 0.09 (< or = 0.50) mg/dL Total Protein 7.4 (6.5-8.0) g/dL Albumin 4.5 (3.5-5.0) g/dL Urine Color Urine Appearance Urine pH (5.0-8.0) Ur Specific [place] (1.005-1.025) Urine Protein (NEG-TRACE) MG/DL Urine Glucose (UA) (NEG) MG/DL Urine Ketones (NEG) MG/DL Urine Blood (NEG) Urine Nitrite (NEG) Ur Leukocyte Esterase (NEG) Urine RBC (0) /HPF Urine WBC (0-4) /HPF Ur Squamous Epith Cells /LPF Urine Bacteria /LPF Hyaline Casts /LPF Urine Mucus /LPF Urine Opiates Screen (Not Detect) Urine Fentanyl Screen (Not Detect) Ur Barbiturates Screen (Not Detect) Ur Phencyclidine Scrn (Not Detect) Ur Amphetamines Screen (Not Detect) U Benzodiazepines Scrn (Not Detect) Urine Cocaine Screen (Not Detect) U Marijuana (THC) Screen (Not Detect) Ethyl Alcohol mg/dL COVID-19 (THU) Negative (Negative) COVID-19 Clin Com See Note 04/27/21 04/27/21 04/27/21 Range/Units 20:53 20:53 20:53 WBC (4.8-10.8) X10*3/uL RBC (4.60-5.80) X10*6/uL Hgb (14.0-18.0) g/dl Hct (42.0-52.0) % MCV (80.0-98.0) fL MCH (27.0-33.0) pg MCHC (31.0-36.0) g/dl RDW (11.0-16.0) % Plt Count (160-400) X10*3/uL MPV (9.4-12.4) fL Immature Gran % (Auto) (0.0-0.4) % Neut % (Auto) (45-73) % Lymph % (Auto) (20-40) % [place] % (Auto) (2-11) % Eos % (Auto) (0-4) % Baso % (Auto) (0-2) % Lymph # (Auto) (1.2-4.9) X10*3/uL [place] # (Auto) (0.1-1.2) X10*3/uL Eos # (Auto) (0.0-0.4) X10*3/uL Baso # (Auto) (0.0-0.2) X10*3/uL Abs Immat Gran (auto) (0.00-0.03) X10*3/uL Absolute Neuts (auto) (2.0-8.3) x10*3/uL Absolute Nucleated RBC (0.0-0.012) X10*3/uL Nucleated RBC % (auto) (0.0-0.2) /100WBC Smear Tech's Comments ESR 2 (0-15) MM/HR Sodium (135-145) mmol/L Potassium (3.3-5.1) mmol/L Chloride (96-108) mmol/L Carbon Dioxide (22-29) mmol/L Anion Gap (12-20) BUN (9-16) mg/dL Creatinine (0.5-1.4) mg/dL Estim Creat Clear Calc Estimated GFR Random Glucose (60-115) mg/dL Lactic Acid 6.1 H* (0.5-2.0) mmol/L Lactic Acid F/U @ 2Hr (0.5-2.0) mmol/L Calcium (8.4-10.2) mg/dL Magnesium (1.6-2.6) mg/dL Total Bilirubin (0.0-1.0) mg/dL Direct Bilirubin (0.0-0.5) mg/dL AST (5-37) U/L ALT (0-40) U/L Alkaline Phosphatase (39-117) U/L Total Creatine Kinase (38-174) U/L C-Reactive Protein (< or = 0.50) mg/dL Total Protein (6.5-8.0) g/dL Albumin (3.5-5.0) g/dL Urine Color Urine Appearance Urine pH (5.0-8.0) Ur Specific [place] (1.005-1.025) Urine Protein (NEG-TRACE) MG/DL Urine Glucose (UA) (NEG) MG/DL Urine Ketones (NEG) MG/DL Urine Blood (NEG) Urine Nitrite (NEG) Ur Leukocyte Esterase (NEG) Urine RBC (0) /HPF Urine WBC (0-4) /HPF Ur Squamous Epith Cells /LPF Urine Bacteria /LPF Hyaline Casts /LPF Urine Mucus /LPF Urine Opiates Screen (Not Detect) Urine Fentanyl Screen (Not Detect) Ur Barbiturates Screen (Not Detect) Ur Phencyclidine Scrn (Not Detect) Ur Amphetamines Screen (Not Detect) U Benzodiazepines Scrn (Not Detect) Urine Cocaine Screen (Not Detect) U Marijuana (THC) Screen (Not Detect) Ethyl Alcohol < 10 mg/dL COVID-19 (THU) (Negative) COVID-19 Clin Com 04/27/21 04/27/21 04/27/21 Range/Units 21:11 21:11 21:27 WBC (4.8-10.8) X10*3/uL RBC (4.60-5.80) X10*6/uL Hgb (14.0-18.0) g/dl Hct (42.0-52.0) % MCV (80.0-98.0) fL MCH (27.0-33.0) pg MCHC (31.0-36.0) g/dl RDW (11.0-16.0) % Plt Count (160-400) X10*3/uL MPV (9.4-12.4) fL Immature Gran % (Auto) (0.0-0.4) % Neut % (Auto) (45-73) % Lymph % (Auto) (20-40) % [place] % (Auto) (2-11) % Eos % (Auto) (0-4) % Baso % (Auto) (0-2) % Lymph # (Auto) (1.2-4.9) X10*3/uL [place] # (Auto) (0.1-1.2) X10*3/uL Eos # (Auto) (0.0-0.4) X10*3/uL Baso # (Auto) (0.0-0.2) X10*3/uL Abs Immat Gran (auto) (0.00-0.03) X10*3/uL Absolute Neuts (auto) (2.0-8.3) x10*3/uL Absolute Nucleated RBC (0.0-0.012) X10*3/uL Nucleated RBC % (auto) (0.0-0.2) /100WBC Smear Tech's Comments ESR (0-15) MM/HR Sodium (135-145) mmol/L Potassium (3.3-5.1) mmol/L Chloride (96-108) mmol/L Carbon Dioxide (22-29) mmol/L Anion Gap (12-20) BUN (9-16) mg/dL Creatinine (0.5-1.4) mg/dL Estim Creat Clear Calc Estimated GFR Random Glucose (60-115) mg/dL Lactic Acid (0.5-2.0) mmol/L Lactic Acid F/U @ 2Hr (0.5-2.0) mmol/L Calcium (8.4-10.2) mg/dL Magnesium (1.6-2.6) mg/dL Total Bilirubin (0.0-1.0) mg/dL Direct Bilirubin (0.0-0.5) mg/dL AST (5-37) U/L ALT (0-40) U/L Alkaline Phosphatase (39-117) U/L Total Creatine Kinase 871 H (38-174) U/L C-Reactive Protein (< or = 0.50) mg/dL Total Protein (6.5-8.0) g/dL Albumin (3.5-5.0) g/dL Urine Color YELLOW Urine Appearance CLEAR Urine pH 5.5 (5.0-8.0) Ur Specific [place] >= 1.030 H (1.005-1.025) Urine Protein 1+ H (NEG-TRACE) MG/DL Urine Glucose (UA) 500 H (NEG) MG/DL Urine Ketones NEG (NEG) MG/DL Urine Blood 2+ H (NEG) Urine Nitrite NEG (NEG) Ur Leukocyte Esterase NEG (NEG) Urine RBC 1-4 (0) /HPF Urine WBC 0-2 (0-4) /HPF Ur Squamous Epith Cells TRACE /LPF Urine Bacteria NONE /LPF Hyaline Casts 0-2 /LPF Urine Mucus TRACE /LPF Urine Opiates Screen POSITIVE H (Not Detect) Urine Fentanyl Screen POSITIVE H (Not Detect) Ur Barbiturates Screen Not Detected (Not Detect) Ur Phencyclidine Scrn Not Detected (Not Detect) Ur Amphetamines Screen Not Detected (Not Detect) U Benzodiazepines Scrn Not Detected (Not Detect) Urine Cocaine Screen POSITIVE H (Not Detect) U Marijuana (THC) Screen POSITIVE H (Not Detect) Ethyl Alcohol mg/dL COVID-19 (THU) (Negative) COVID-19 Clin Com 04/28/21 Range/Units 00:04 WBC (4.8-10.8) X10*3/uL RBC (4.60-5.80) X10*6/uL Hgb (14.0-18.0) g/dl Hct (42.0-52.0) % MCV (80.0-98.0) fL MCH (27.0-33.0) pg MCHC (31.0-36.0) g/dl RDW (11.0-16.0) % Plt Count (160-400) X10*3/uL MPV (9.4-12.4) fL Immature Gran % (Auto) (0.0-0.4) % Neut % (Auto) (45-73) % Lymph % (Auto) (20-40) % [place] % (Auto) (2-11) % Eos % (Auto) (0-4) % Baso % (Auto) (0-2) % Lymph # (Auto) (1.2-4.9) X10*3/uL [place] # (Auto) (0.1-1.2) X10*3/uL Eos # (Auto) (0.0-0.4) X10*3/uL Baso # (Auto) (0.0-0.2) X10*3/uL Abs Immat Gran (auto) (0.00-0.03) X10*3/uL Absolute Neuts (auto) (2.0-8.3) x10*3/uL Absolute Nucleated RBC (0.0-0.012) X10*3/uL Nucleated RBC % (auto) (0.0-0.2) /100WBC Smear Tech's Comments ESR (0-15) MM/HR Sodium (135-145) mmol/L Potassium (3.3-5.1) mmol/L Chloride (96-108) mmol/L Carbon Dioxide (22-29) mmol/L Anion Gap (12-20) BUN (9-16) mg/dL Creatinine (0.5-1.4) mg/dL Estim Creat Clear Calc Estimated GFR Random Glucose (60-115) mg/dL Lactic Acid (0.5-2.0) mmol/L Lactic Acid F/U @ 2Hr 1.1 (0.5-2.0) mmol/L Calcium (8.4-10.2) mg/dL Magnesium (1.6-2.6) mg/dL Total Bilirubin (0.0-1.0) mg/dL Direct Bilirubin (0.0-0.5) mg/dL AST (5-37) U/L ALT (0-40) U/L Alkaline Phosphatase (39-117) U/L Total Creatine Kinase (38-174) U/L C-Reactive Protein (< or = 0.50) mg/dL Total Protein (6.5-8.0) g/dL Albumin (3.5-5.0) g/dL Urine Color Urine Appearance Urine pH (5.0-8.0) Ur Specific [place] (1.005-1.025) Urine Protein (NEG-TRACE) MG/DL Urine Glucose (UA) (NEG) MG/DL Urine Ketones (NEG) MG/DL Urine Blood (NEG) Urine Nitrite (NEG) Ur Leukocyte Esterase (NEG) Urine RBC (0) /HPF Urine WBC (0-4) /HPF Ur Squamous Epith Cells /LPF Urine Bacteria /LPF Hyaline Casts /LPF Urine Mucus /LPF Urine Opiates Screen (Not Detect) Urine Fentanyl Screen (Not Detect) Ur Barbiturates Screen (Not Detect) Ur Phencyclidine Scrn (Not Detect) Ur Amphetamines Screen (Not Detect) U Benzodiazepines Scrn (Not Detect) Urine Cocaine Screen (Not Detect) U Marijuana (THC) Screen (Not Detect) Ethyl Alcohol mg/dL COVID-19 (THU) (Negative) COVID-19 Clin Com <POLLY Delacruz - Last Filed: 04/28/21 00:27> Critical Care Time Critical Care Time Critical Care Time: Yes <POLLY Delacruz - Last Filed: 04/28/21 00:27> Total Critical Care Time: 39 <POLLY Delacruz - Last Filed: 04/28/21 00:27> Attestation: I have personally provided critical care time exclusive of time spent on separately billable procedures. Time includes review of lab data, radiology results, frequent bedside reassessments, and monitoring for potential decompensation. Intervention performed as documented. <POLLY Delacruz - Last Filed: 04/28/21 00:27> Discharge Plan Discharge Clinical Impression: Accidental heroin overdose, Hypothermia due to exposure, ESMER (acute kidney injury), Rhabdomyolysis <POLLY Delacruz Last Filed: 04/28/21 00:27> Patient Disposition: Still a Patient <POLLY Delacruz - Last Filed: 04/28/21 00:27> Instructions: Polysubstance Abuse (ED) <POLLY Delacruz Last Filed: 04/28/21 00:27> Additional Instructions: Do not use heroin, it can kill you Recommend detox <POLLY Delacruz - Last Filed: 04/28/21 00:27>
[2021-04-27 20:07] VITALS: TEMP 33.3
--- NOTE | 2021-04-27 20:12 | PC.NURSE ---
Pt core temp 91.9, consistently shivering, remains awake and alert. Provider notified. Pt placed on shannon hugger
[2021-04-27 21:09] LABS: COVID-19 Test Negative (Negative); IDNOW Serial# 9DD0AD1C
[2021-04-27 21:11] LABS: Basophils Percent Auto 0.1 % (0-2); Eosinophils Percent Auto 0.1 % (0-4); Hematocrit 45.9 % (42.0-52.0); Hemoglobin 14.4 g/dl (14.0-18.0); Imm Gran Abs Auto 0.07 X10*3/uL (0.00-0.03); Imm Gran Pct Auto 0.4 % (0.0-0.4); Lymphocytes Absolute Auto 0.8 X10*3/uL (1.2-4.9); Lymphocytes Percent Auto 4.8 % (20-40); MANUAL DIFF FLAG SCAN; Mean Corpuscular HGB Conc 31.4 g/dl (31.0-36.0); Mean Corpuscular Hemoglobin 28.3 pg (27.0-33.0); Mean Corpuscular Volume 90.2 fL (80.0-98.0); Monocytes Absolute Auto 0.5 X10*3/uL (0.1-1.2); Neutrophils Absolute Auto 14.6 x10*3/uL (2.0-8.3); Neutrophils Percent Auto 91.6 % (45-73); Platelet Count 198 X10*3/uL (160-400); Red Blood Count 5.09 X10*6/uL (4.60-5.80); Red Cell Distribution Width 13.3 % (11.0-16.0); SCAN SMEAR FLAG 1; White Blood Count 15.9 X10*3/uL (4.8-10.8)
[2021-04-27 21:14] LABS: Ethanol < 10 mg/dL
[2021-04-27 21:16] LABS: Alanine Aminotransferase 79 U/L (0-40); Albumin Level 4.5 g/dL (3.5-5.0); Alkaline Phosphatase 72 U/L (39-117); Anion Gap 17 (12-20); Aspartate Amino Transferase 93 U/L (5-37); Bilirubin Direct 0.2 mg/dL (0.0-0.5); Bilirubin Total 0.5 mg/dL (0.0-1.0); Blood Urea Nitrogen 26 mg/dL (9-16); Calcium 9.4 mg/dL (8.4-10.2); Carbon Dioxide 24 mmol/L (22-29); Chloride 107 mmol/L (96-108); Creatinine Clr Calc Pharmacy 60.7; Estimated Glomerular Filt Rate 54; Glucose Random 165 mg/dL (60-115); Magnesium 2.4 mg/dL (1.6-2.6); Potassium 4.7 mmol/L (3.3-5.1); Sodium 143 mmol/L (135-145); Total Protein 7.4 g/dL (6.5-8.0)
[2021-04-27 21:18] LABS: Lactic Acid 6.1 mmol/L (0.5-2.0)
[2021-04-27 21:22] LABS: Appearance Urine CLEAR; Color Urine YELLOW; Glucose Urine UA 500 MG/DL (NEG); Leukocyte Esterase Urine NEG (NEG); Nitrite Urine NEG (NEG); PH 5.5 (5.0-8.0); Specific Gravity - Urine >= 1.030 (1.005-1.025); UACC Culture Trigger NO; Urine Blood 2+ (NEG); Urine Ketones NEG (NEG); Urine Protein 1+ MG/DL (NEG-TRACE)
[2021-04-27 21:33] LABS: Amphetamine Screen Urine Not Detected (Not Detect); Barbiturates, Urine Not Detected (Not Detect); Benzodiazepines Screen Urine Not Detected (Not Detect); Cannabinoid Screen Urine POSITIVE (Not Detect); Cocaine Screen Urine POSITIVE (Not Detect); Fentanyl, urine POSITIVE (Not Detect); Opiate Screen Urine POSITIVE (Not Detect); Phencyclidine Screen Urine Not Detected (Not Detect)
[2021-04-27 21:42] LABS: SLIDE REVIEW VERIFIED
[2021-04-27 21:50] LABS: Hyaline Casts Urine 0-2 /LPF; Mucus Urine TRACE /LPF; Squamous Epithelial Cell Urine TRACE /LPF; WBC Urine 0-2 /HPF (0-4)
[2021-04-27 21:54] LABS: C Reactive Protein 0.09 mg/dL (< or = 0.50)
[2021-04-27] MEDS: 0.9 % Sodium Chloride 2,041.17 ML 2041.17 ML IV (21:55)
[2021-04-27] MEDS: 0.9 % Sodium Chloride 1,000 ML 999 ML IVCONT (21:55)
[2021-04-27] MEDS: vancomycin HCL 1,500 MG in 0.9 % Sodium Chloride 500 ML 333.33 MG IV (21:56)
[2021-04-27] MEDS: cefEPime HCl 2 GM in 0.9 % Sodium Chloride 50 ML IV (21:56)
[2021-04-27 22:30] VITALS: TEMP 37.2
[2021-04-27 22:33] LABS: Erythrocyte Sedimentation Rate 2 MM/HR (0-15)
[2021-04-27 22:58] LABS: Reflex Lactate? Lactic Acid Added
[2021-04-28] VITALS (8 sets, daily range): BP systolic 92–129; BP diastolic 60–70; PULSE 63–88; RESP 16–19; O2SAT 96–100
[2021-04-28 00:19] LABS: ~Lactic Acid-LAB USE ONLY 1.1 mmol/L (0.5-2.0)
--- NOTE | 2021-04-28 01:13 | HO.SUDE ---
Unable to complete SUDE with pt at this time, as there is no Frisian language senior medical technologist available. Pt is currently seeking detox and has been medically cleared and is in physician observation awaiting possible detox placement in the morning when a proper, facility placement search can commence. Per chart review-- Prior to this evening, pt has presented to the ED with accidental opiate overdoses on: 09/11/20, 08/11/20, 06/23/20, 05/27/20, 04/19/20 Substance use history: Alcohol, first use age 13, 3-4x per week last documented in October 2019. Current pattern of use unknown at this time. Cannabis, first use age 13, daily use last documented in October 2019. Current pattern of use unknown at this time. Cocaine, first use age 14, daily/dependent on finances last documented in October 2019. Current pattern of use unknown at this time. Opiates, first use age 38, daily use last documented in October 2019. Current pattern of use unknown at this time. Treatment history: July 2019, October 2019, March 2020 - sent to detox facilities from the ED. Mental health: No history of IPLOC/PHP/Respite admissions; history of receiving therapy and care coordination through [facility].
--- NOTE | 2021-04-28 04:53 | PC.NURSE ---
I assumed care of this pt upon his arrival to bed 21 from ambulance stretcher. Javad arrived after being found in a basement by his family unresponsive. 4mg INH Narcan was administered (as well as a bucket of ice down his pants ) and the pt woke. On arrival to ED his is alert, oriented x 3, agitated and shivering from being cold. Security and additional RN and MHT present and pt was completely undressed and placed into hospital clothes and placed on all bedside monitors. Rectal temp revealed a temp of 91.9 - BairHugger applied at warmest selection and within 90 minutes the pt had a PO temp of 98.9 - Bairhugger removed at that time. Since that time the pt has mostly been sleeping, waking frequently to request PO food and fluids, which he has been taking independently and without difficulty. There is no chest pain. No resp. distress - RR has remained WNL, no cyanosis, room air sat's have remained 95% or better. He is ROBLEDO x 4, but admits to diffuse, moderate to severe pain in both arms and both legs with movement; no deformities or evidence of injury noted to extremities. STach initially on bedside monitor, now SR rate 80's. IV access/labs/IVF's/IVAbx administered per MD order. Pt has voided into bedside urinal independently and without difficulty. We will continue to monitor Javad.
--- NOTE | 2021-04-28 08:45 | MHC.RECOVSUP ---
Recovery Support note: Patient is a 41 year old Maltese speaking male who presented to [facility] ED after an accidental overdose on 04/27/21. This journalists and other writers met with patient on 04/28/21 with an [facility] legal services professional to discuss his substance use and treatment options. Patient declines detox, stating he relapsed yesterday and that he used one bag because he was stressed. Patient reports he has been receiving Suboxone through [facility] and that he had previously maintained sobriety for 3 months up until yesterday. Patient reports he still has Suboxone at home and that he can resume Suboxone treatment on his own. Discussed relapse prevention and coping skills with patient. Patient reports he has a court date today and that he would like to discharge. Patient is reporting leg pain. Discussed case with patient's ED provider.
--- NOTE | 2021-04-28 09:48 | PC.NURSE ---
ate breakfast, not interested in detox, c/o leg pain, awaiting discharge orders, nad, now sleeping,
[2021-04-28] MEDS: 0.9 % Sodium Chloride 1,000 ML 250 ML IVCONT (10:58)
[2021-04-28] MEDS: Sodium Bicarbonate 8.4% 150 MEQ in Dextrose 5 % 850 ML 50 MEQ IV ×2 (11:05→22:24)
[2021-04-28 11:34] LABS: INTERNATIONAL NORM RATIO 1.1 (0.9-1.1); Prothrombin Time 12.4 SEC (9.9-13.0)
--- NOTE | 2021-04-28 11:34 | PC.NURSE ---
CALL TO DR CAI.
[2021-04-28 11:53] LABS: Anion Gap 8 (12-20); Blood Urea Nitrogen 21 mg/dL (9-16); Calcium 8.5 mg/dL (8.4-10.2); Carbon Dioxide 28 mmol/L (22-29); Chloride 106 mmol/L (96-108); Creatinine Clr Calc Pharmacy 92.3; Estimated Glomerular Filt Rate > 60; Glucose Random 88 mg/dL (60-115); Potassium 4.2 mmol/L (3.3-5.1); Sodium 138 mmol/L (135-145)
--- NOTE | 2021-04-28 13:33 | PC.NURSE ---
increased d5 to 100ml/hr per Dr Orellana orders.
--- NOTE | 2021-04-28 13:58 | P.HPHOSP_ITS ---
History of Present Illness Date of Service: 04/28/21 Chief Complaint: overdose This history was taken in Kiswahili from the patient. 41yo M with opioid use disorder, previously on Suboxone, with ongoing IN cocaine and heroin/fentanyl abuse, was found unresponsive by his mother at home. She tried to wake him up by stuffing ice cubes into his pants without success. She called EMS and he was given 4 mg of IN nalaoxone, and he woke up promptly. He arrived in the ED hypothermic at 91.9 rectal and amnestic to the events just prior to the overdose. He was placed on the Tami Hugger and given warm IV fluids. Lactate was 6.1 and he was given 30 cc/kg of normal saline and given vancomycin and cefepime. He had no skin needle track ortiz and denied injection drug use, insisting he only uses IN. He has had 4 ED visits for opioid overdose in 2020. CPK went from 871 to 9668, over 12 hr. SCr went from 1.43 to 0.94. Lactate 6.1 to 1.1. Temperature normalized and he is now 98.9. He was started on NS and isotonic bicarbonate infusion. Noted to have R calf pain/tenderness and tightness and difficulty moving the R leg. No discoloration or loss of sensation. Dr Ny from Vascular Surgery was consulted by the ED due to concern for compartment syndrome, but this was thought unlikely at this time. He is now able to move the leg. Denies back pain. No fever. Review of Systems Verdana 4l Review of Systems: Yes all other systems are reviewed and Verdana 4d are negative [facility] Medical History (Updated 04/28/21 @ 14:06 by Zuhair Gonzalez MD) History of hepatitis C Opioid use disorder Pertinent family history: both parents have DM2 Social History Alcohol intake: current Patient Tobacco Use Status: Current everyday Tobacco user Use of substances other than those prescribed or required for medical reasons: Yes Substance Use Type: Crack/Cocaine, Heroin, Marijuana and Opiates Advance Directives: No Meds Allergies Allergy/AdvReac Type Severity Reaction Status Date / Time No Known Allergies Allergy Verified 08/11/20 15:00 [No Known Allergies*] Active Medications: Current Medications Sodium Chloride (Ns) 1,000 mls @ 250 mls/hr IVCONT .Q4H SELVIN Stop: 04/28/21 14:29 Last Admin: 04/28/21 10:58 Dose: 250 mls/hr Documented by: Sodium Bicarbonate 150 meq/ (Dextrose) 1,000 mls @ 100 mls/hr IV .Q10H [facility] Last Admin: 04/28/21 11:05 Dose: 50 mls/hr Documented by: Pharmacy Consult (Consult Rx Vancomycin Dosing) 1 each MISCELLANE DAILY PRN PRN Reason: Consult order Pharmacy Consult (Consult Rx Perform Med Rec) 1 each MISCELLANE STAT STA Stop: 04/28/21 13:40 Home Medications Medication Instructions Recorded Confirmed Last Taken Type buprenorphine 8 1 strip 04/28/21 04/28/21 04/27/21 History mg-naloxone 2 mg SUBLINGUAL BID sublingual film (Suboxone) diphenhydramine 1 tab PO BEDTIME 04/28/21 04/28/21 04/27/21 History 25 PRN mg-acetaminophen 500 mg tablet (Tylenol PM Extra Strength) Physical Exam Verdana 4l Vital Signs and Narrative: Verdana 4d Verdana 4d Vital Signs: Verdana 4d Verdana 4Bd Last Vital Signs Verdana 4d Supervisor Heading New 4d Supervisor Heading New 4d Temp 98.9 F 04/27/21 22:30 Supervisor Heading New 4d Pulse 67 04/28/21 13:38 Supervisor Heading New 4d Resp 19 04/28/21 13:38 BP 129/65 04/28/21 13:38 Pulse Ox 98 04/28/21 13:38 BMI result Body Mass Index 24.2 Gen: in no acute distress HEENT: sclera anicteric, moist mucus membranes Neck: supple Lungs: clear to auscultation bilaterally Heart: regular rate and rhythm, no murmurs Abd: soft, non-tender, non-distended Ext: R calf swollen/tight, pulses intact, warm to touch, distally neurovascularly intact Skin: warm/well-perfused Neuro: alert and oriented x3, no focal findings Psych: appropriate affect Results Labs CBC and Chem 7: 04/27/21 20:53 04/28/21 11:16 Labs: Laboratory Results - last 24 hr 04/27/21 04/27/21 04/27/21 20:49 20:53 20:53 MCV 90.2 MCH 28.3 MCHC 31.4 RDW 13.3 Plt Count 198 MPV 10.0 Immature Gran % (Auto) 0.4 Neut % (Auto) 91.6 H Lymph % (Auto) 4.8 L [place] % (Auto) 3.0 Eos % (Auto) 0.1 Baso % (Auto) 0.1 Lymph # (Auto) 0.8 L [place] # (Auto) 0.5 Eos # (Auto) 0.0 Baso # (Auto) 0.0 Abs Immat Gran (auto) 0.07 H Absolute Neuts (auto) 14.6 H Absolute Nucleated RBC 0.000 Nucleated RBC % (auto) 0.0 Smear Tech's Comments VERIFIED ESR PT INR Anion Gap 17 Estim Creat Clear Calc 60.7 Estimated GFR 54 Random Glucose 165 H D Lactic Acid Lactic Acid F/U @ 2Hr Calcium 9.4 D Magnesium 2.4 Total Bilirubin 0.5 Direct Bilirubin 0.2 AST 93 H ALT 79 H Alkaline Phosphatase 72 D Total Creatine Kinase C-Reactive Protein 0.09 Total Protein 7.4 Albumin 4.5 Urine Color Urine Appearance Urine pH Ur Specific [place] Urine Protein Urine Glucose (UA) Urine Ketones Urine Blood Urine Nitrite Ur Leukocyte Esterase Urine RBC Urine WBC Ur Squamous Epith Cells Urine Bacteria Hyaline Casts Urine Mucus Urine Opiates Screen Urine Fentanyl Screen Ur Barbiturates Screen Ur Phencyclidine Scrn Ur Amphetamines Screen U Benzodiazepines Scrn Urine Cocaine Screen U Marijuana (THC) Screen Ethyl Alcohol COVID-19 (THU) Negative COVID-19 Clin Com See Note 04/27/21 04/27/21 04/27/21 20:53 20:53 20:53 MCV MCH MCHC RDW Plt Count MPV Immature Gran % (Auto) Neut % (Auto) Lymph % (Auto) [place] % (Auto) Eos % (Auto) Baso % (Auto) Lymph # (Auto) [place] # (Auto) Eos # (Auto) Baso # (Auto) Abs Immat Gran (auto) Absolute Neuts (auto) Absolute Nucleated RBC Nucleated RBC % (auto) Smear Tech's Comments ESR 2 PT INR Anion Gap Estim Creat Clear Calc Estimated GFR Random Glucose Lactic Acid 6.1 H* Lactic Acid F/U @ 2Hr Calcium Magnesium Total Bilirubin Direct Bilirubin AST ALT Alkaline Phosphatase Total Creatine Kinase C-Reactive Protein Total Protein Albumin Urine Color Urine Appearance Urine pH Ur Specific [place] Urine Protein Urine Glucose (UA) Urine Ketones Urine Blood Urine Nitrite Ur Leukocyte Esterase Urine RBC Urine WBC Ur Squamous Epith Cells Urine Bacteria Hyaline Casts Urine Mucus Urine Opiates Screen Urine Fentanyl Screen Ur Barbiturates Screen Ur Phencyclidine Scrn Ur Amphetamines Screen U Benzodiazepines Scrn Urine Cocaine Screen U Marijuana (THC) Screen Ethyl Alcohol < 10 COVID-19 (THU) COVID-19 [employer] Com 04/27/21 04/27/21 04/27/21 21:11 21:11 21:27 MCV MCH MCHC RDW Plt Count MPV Immature Gran % (Auto) Neut % (Auto) Lymph % (Auto) [place] % (Auto) Eos % (Auto) Baso % (Auto) Lymph # (Auto) [place] # (Auto) Eos # (Auto) Baso # (Auto) Abs Immat Gran (auto) Absolute Neuts (auto) Absolute Nucleated RBC Nucleated RBC % (auto) Smear Tech's Comments ESR PT INR Anion Gap Estim Creat Clear Calc Estimated GFR Random Glucose Lactic Acid Lactic Acid F/U @ 2Hr Calcium Magnesium Total Bilirubin Direct Bilirubin AST ALT Alkaline Phosphatase Total Creatine Kinase 871 H C-Reactive Protein Total Protein Albumin Urine Color YELLOW Urine Appearance CLEAR Urine pH 5.5 Ur Specific [place] >= 1.030 H Urine Protein 1+ H Urine Glucose (UA) 500 H Urine Ketones NEG Urine Blood 2+ H Urine Nitrite NEG Ur Leukocyte Esterase NEG Urine RBC 1-4 Urine WBC 0-2 Ur Squamous Epith Cells TRACE Urine Bacteria NONE Hyaline Casts 0-2 Urine Mucus TRACE Urine Opiates Screen POSITIVE H Urine Fentanyl Screen POSITIVE H Ur Barbiturates Screen Not Detected Ur Phencyclidine Scrn Not Detected Ur Amphetamines Screen Not Detected U Benzodiazepines Scrn Not Detected Urine Cocaine Screen POSITIVE H U Marijuana (THC) Screen POSITIVE H Ethyl Alcohol COVID-19 (THU) COVID-19 Clin Com 04/28/21 04/28/21 04/28/21 00:04 09:23 11:16 MCV MCH MCHC RDW Plt Count MPV Immature Gran % (Auto) Neut % (Auto) Lymph % (Auto) [place] % (Auto) Eos % (Auto) Baso % (Auto) Lymph # (Auto) [place] # (Auto) Eos # (Auto) Baso # (Auto) Abs Immat Gran (auto) Absolute Neuts (auto) Absolute Nucleated RBC Nucleated RBC % (auto) Smear Tech's Comments ESR PT INR Anion Gap 8 L Estim Creat Clear Calc 92.3 Estimated GFR > 60 Random Glucose 88 D Lactic Acid Lactic Acid F/U @ 2Hr 1.1 Calcium 8.5 D Magnesium Total Bilirubin Direct Bilirubin AST ALT Alkaline Phosphatase Total Creatine Kinase 9668 H D C-Reactive Protein Total Protein Albumin Urine Color Urine Appearance Urine pH Ur Specific [place] Urine Protein Urine Glucose (UA) Urine Ketones Urine Blood Urine Nitrite Ur Leukocyte Esterase Urine RBC Urine WBC Ur Squamous Epith Cells Urine Bacteria Hyaline Casts Urine Mucus Urine Opiates Screen Urine Fentanyl Screen Ur Barbiturates Screen Ur Phencyclidine Scrn Ur Amphetamines Screen U Benzodiazepines Scrn Urine Cocaine Screen U Marijuana (THC) Screen Ethyl Alcohol COVID-19 (THU) COVID-19 [employer] Com 04/28/21 11:16 MCV MCH MCHC RDW Plt Count MPV Immature Gran % (Auto) Neut % (Auto) Lymph % (Auto) [place] % (Auto) Eos % (Auto) Baso % (Auto) Lymph # (Auto) [place] # (Auto) Eos # (Auto) Baso # (Auto) Abs Immat Gran (auto) Absolute Neuts (auto) Absolute Nucleated RBC Nucleated RBC % (auto) Smear Tech's Comments ESR PT 12.4 INR 1.1 Anion Gap Estim Creat Clear Calc Estimated GFR Random Glucose Lactic Acid Lactic Acid F/U @ 2Hr Calcium Magnesium Total Bilirubin Direct Bilirubin AST ALT Alkaline Phosphatase Total Creatine Kinase C-Reactive Protein Total Protein Albumin Urine Color Urine Appearance Urine pH Ur Specific [place] Urine Protein Urine Glucose (UA) Urine Ketones Urine Blood Urine Nitrite Ur Leukocyte Esterase Urine RBC Urine WBC Ur Squamous Epith Cells Urine Bacteria Hyaline Casts Urine Mucus Urine Opiates Screen Urine Fentanyl Screen Ur Barbiturates Screen Ur Phencyclidine Scrn Ur Amphetamines Screen U Benzodiazepines Scrn Urine Cocaine Screen U Marijuana (THC) Screen Ethyl Alcohol COVID-19 (THU) COVID-19 Clin Com Impressions Chest X-Ray 04/27/21 21:33 IMPRESSION: No acute cardiopulmonary findings Imaging Radiologist's Impressions: Impressions Chest X-Ray 04/27/21 21:33 IMPRESSION: No acute cardiopulmonary findings Assessment and Plan (1) Rhabdomyolysis: Status: Acute (2) ESMER (acute kidney injury): Status: Acute (3) Hypothermia due to exposure: Status: Acute (4) Accidental heroin overdose: Status: Acute Plan 41yo M with opioid and cocaine use disorder presenting after overdose and being packed with ice by his mother in attempt to wake him up. Reversed with naloxone by EMS and brought in hypothermic with lactic acidosis, which have all resolved. Found to have rhabdomyolysis. # rhabdomyolysis - likely due to cocaine + being down after opioid overdose. admit to M/S, give isotonic bicarbonate, monitor CPK - Vascular Surgery consult re question of compartment syndrome but I think this unlikely at this point # lactic acidosis # hypothermia # ESMER - resolved in the ED # opioid use disorder # cocaine use disorder - Addiction Med + CARE Team consults - update HIV screen. he is HBV immune. HCV Ab historically positive; rescreen with viral load # VTE ppx - LMWH # code - full Quality Stroke Does the patient have a stroke diagnosis?: No VTE Prior VTE?: No VTE Risk Level:: Medical - moderate - high VTE Device Contraindication: N/A - Device Ordered VTE Drug Contraindication: N/A - Med Ordered
--- NOTE | 2021-04-28 14:03 | PHA.MEDREC ---
Pharmacy Consult ? Medication Reconciliation Pharmacy has completed the medication reconciliation. Spoke with patient in ED via food safety specialist.
--- NOTE | 2021-04-28 15:05 | P.CONGS_ITS ---
History of Present Illness Consult details Consult date: 04/28/21 Reason for consult: other ( rule out compartment syndrome) Narrative: 41-year-old gentleman with her when overdose was found down. He was subsequently brought into the emergency room. It was reported at the scene that patients mother had ice the patient down. He was wrapped in ice subsequently brought into to ER. once he recovered from his hypothermia he was recognized to have bilateral lower extremity pain. Was subsequently worked up. He now presents to me for evaluation regarding compartment syndrome. I had seen and evaluated this gentleman at 13:30 Review of Systems Verdana 4l Review of Systems: Yes all other systems are reviewed and Verdana 4d are negative Verdana 4l Constitutional: Verdana 4d Constitutional: Verdana 4d Verdana 4d Reports no additional constitutional complaints Verdana 4l ENT: Verdana 4d Reports Normal hearing present Verdana 4l Cardiovascular: Verdana 4d Cardiovascular: Verdana 4d Verdana 4d Denies chest pain, Denies chest pain at rest, Denies chest pain with activity and Denies pedal edema Verdana 4l Respiratory: Verdana 4d Verdana 4d Respiratory: Verdana 4d Denies cough Verdana 4l Gastrointestinal: Verdana 4d Gastrointestinal: Verdana 4d Verdana 4d Denies abdominal pain Verdana 4l Musculoskeletal: Verdana 4d Musculoskeletal: Verdana 4d Verdana 4d Denies abnormal gait, Denies muscle cramps and Denies radiating pain into limb Verdana 4l Integumentary/Breasts: Verdana 4d Skin/Breast: Verdana 4d Verdana 4d Denies skin ulcer and Denies wounds Verdana 4l Neurologic: Verdana 4d Reports Normal hearing present and Denies abnormal gait Verdana 4l Psychiatric: Verdana 4d Verdana 4d Psychiatric: Verdana 4d Reports no additional psychiatric complaints PMFSH Past Medical History Medical History (Updated 04/28/21 @ 14:06 by Zuhair Gonzalez MD) History of hepatitis C Opioid use disorder Social History Social History Alcohol intake: current Patient Tobacco Use Status: Current everyday Tobacco user Use of substances other than those prescribed or required for medical reasons: Yes Substance Use Type: Crack/Cocaine, Heroin, Marijuana and Opiates Advance Directives: No Meds Allergies Allergy/AdvReac Type Severity Reaction Status Date / Time No Known Allergies Allergy Verified 08/11/20 15:00 [No Known Allergies*] Active Medications: Current Medications Acetaminophen (Acetaminophen 325 Mg Tablet) 650 mg PO Q6H PRN PRN Reason: Pain, Mild (Pain Scale 1-3) Buprenorphine/Naloxone (Buprenorphine/Naloxone 8/2 Mg Film) 1 film SUBLINGUAL BID [facility] Enoxaparin Sodium (Enoxaparin Sodium 40 Mg/0.4 Ml Syringe) 40 mg SUBCUT Q24H [facility] Sodium Bicarbonate 150 meq/ (Dextrose) 1,000 mls @ 150 mls/hr IV .Q6H40M [facility] Last Admin: 04/28/21 11:05 Dose: 50 mls/hr Documented by: Morphine Sulfate (Morphine Sulfate 4 Mg/Ml Cartridge) 4 mg IVPUSH Q2H PRN; Pr otocol PRN Reason: severe pain Ondansetron HCl (Ondansetron Hcl 4 Mg/2 Ml Vial) 4 mg IVPUSH Q8H PRN PRN Reason: Nausea and Vomiting Pharmacy Consult (Consult Rx Vancomycin Dosing) 1 each MISCELLANE DAILY PRN PRN Reason: Consult order Sodium Chloride (0.9 % Sodium Chloride Flush 3 Ml Syringe) 3 ml IVFLUSH QSHIFT [facility] Home Medications Medication Instructions Recorded Confirmed Last Taken Type buprenorphine 8 1 strip 04/28/21 04/28/21 04/27/21 History mg-naloxone 2 mg SUBLINGUAL BID sublingual film (Suboxone) diphenhydramine 1 tab PO BEDTIME 04/28/21 04/28/21 04/27/21 History 25 PRN mg-acetaminophen 500 mg tablet (Tylenol PM Extra Strength) Physical Exam Verdana 4l Vital Signs: Verdana 4d Verdana 4d Vital Signs: Verdana 4d Verdana 4Bd Last Vital Signs Verdana 4d Fishing Floats Assembler New 4d Fishing Flo[employer] Assembler New 4d Temp 98.9 F 04/27/21 22:30 Fishing Floats Assembler New 4d Pulse 67 04/28/21 13:38 Fishing Floats Assembler New 4d Resp 19 04/28/21 13:38 BP 129/65 04/28/21 13:38 Pulse Ox 98 04/28/21 13:38 BMI result Body Mass Index 24.2 Const: General: cooperative, healthy appearing and comfortable Orientation/consciousness: oriented to person, oriented to place and oriented to time HENMT: Head: Yes normal to inspection Neck: Neck: Yes normal visual inspection Carotids: no bruits Chest: Chest palpation & inspection: normal inspection of the chest Resp: Effort & Inspection: normal respiratory effort and able to speak in complete sentences Auscultation: clear to auscultation bilaterally, no crackles, no rales, no rhonchi and no wheezes Cardio: Rate: regular rate Rhythm: regular rhythm Heart sounds: S1 normal heart sound present and S2 normal heart sound present Bruits: no carotid bruits Peripheral pulses: Peripheral pulses 2+ throughout GI: Inspection: Yes normal to inspection Skin: Wounds: no wounds Hair: normal Neuro: General: oriented to person, oriented to place and oriented to time Cranial nerves: Yes CN's II-XII intact bilaterally and Yes Normal hearing present Cognition (Neuro): normal cognition Motor exam (neuro): 5/5 motor strength present throughout Extrem: Other: venous exam: No significant superficial varicosities or spider telangiectasias, minimal edema. Motor and sensation intact - all calf and thigh compartments were soft General: No clubbing, No cyanosis and Yes edema Psych: Appearance: grossly normal Mental Status: mental status grossly normal Speech and movement: Normal speech and movement present Results Labs Result diagrams: 04/27/21 20:53 04/28/21 11:16 Labs: Abnormal lab results 04/27/21 04/27/21 04/27/21 Range/Units 20:53 20:53 20:53 WBC 15.9 H (4.8-10.8) X10*3/uL Neut % (Auto) 91.6 H (45-73) % Lymph % (Auto) 4.8 L (20-40) % Lymph # (Auto) 0.8 L (1.2-4.9) X10*3/uL Abs Immat Gran (auto) 0.07 H (0.00-0.03) X10*3/uL Absolute Neuts (auto) 14.6 H (2.0-8.3) x10*3/uL Anion Gap (12-20) BUN 26 H (9-16) mg/dL Creatinine 1.43 H (0.5-1.4) mg/dL Random Glucose 165 H D (60-115) mg/dL Lactic Acid 6.1 H* (0.5-2.0) mmol/L AST 93 H (5-37) U/L ALT 79 H (0-40) U/L Total Creatine Kinase (38-174) U/L Ur Specific [place] (1.005-1.025) Urine Protein (NEG-TRACE) MG/DL Urine Glucose (UA) (NEG) MG/DL Urine Blood (NEG) Urine Opiates Screen (Not Detect) Urine Fentanyl Screen (Not Detect) Urine Cocaine Screen (Not Detect) U Marijuana (THC) Screen (Not Detect) 04/27/21 04/27/21 04/27/21 Range/Units 21:11 21:11 21:27 WBC (4.8-10.8) X10*3/uL Neut % (Auto) (45-73) % Lymph % (Auto) (20-40) % Lymph # (Auto) (1.2-4.9) X10*3/uL Abs Immat Gran (auto) (0.00-0.03) X10*3/uL Absolute Neuts (auto) (2.0-8.3) x10*3/uL Anion Gap (12-20) BUN (9-16) mg/dL Creatinine (0.5-1.4) mg/dL Random Glucose (60-115) mg/dL Lactic Acid (0.5-2.0) mmol/L AST (5-37) U/L ALT (0-40) U/L Total Creatine Kinase 871 H (38-174) U/L Ur Specific [place] >= 1.030 H (1.005-1.025) Urine Protein 1+ H (NEG-TRACE) MG/DL Urine Glucose (UA) 500 H (NEG) MG/DL Urine Blood 2+ H (NEG) Urine Opiates Screen POSITIVE H (Not Detect) Urine Fentanyl Screen POSITIVE H (Not Detect) Urine Cocaine Screen POSITIVE H (Not Detect) U Marijuana (THC) POSITIVE H (Not Detect) Screen 04/28/21 04/28/21 04/28/21 Range/Units 09:23 11:16 12:45 WBC (4.8-10.8) X10*3/uL Neut % (Auto) (45-73) % Lymph % (Auto) (20-40) % Lymph # (Auto) (1.2-4.9) X10*3/uL Abs Immat Gran (auto) (0.00-0.03) X10*3/uL Absolute Neuts (auto) (2.0-8.3) x10*3/uL Anion Gap 8 L (12-20) BUN 21 H (9-16) mg/dL Creatinine (0.5-1.4) mg/dL Random Glucose (60-115) mg/dL Lactic Acid (0.5-2.0) mmol/L AST (5-37) U/L ALT (0-40) U/L Total Creatine Kinase 9668 H D 36049 H (38-174) U/L Ur Specific [place] (1.005-1.025) Urine Protein (NEG-TRACE) MG/DL Urine Glucose (UA) (NEG) MG/DL Urine Blood (NEG) Urine Opiates Screen (Not Detect) Urine Fentanyl Screen (Not Detect) Urine Cocaine Screen (Not Detect) U Marijuana (THC) Screen (Not Detect) Short CBC 04/27/21 Range/Units 20:53 WBC 15.9 H (4.8-10.8) X10*3/uL Hgb 14.4 (14.0-18.0) g/dl Hct 45.9 (42.0-52.0) % Plt Count 198 (160-400) X10*3/uL BMP 04/27/21 04/28/21 20:53 11:16 Sodium 143 138 Potassium 4.7 4.2 Chloride 107 106 Carbon Dioxide 24 28 BUN 26 H 21 H Creatinine 1.43 H 0.94 Calcium 9.4 D 8.5 D Cardiac Enzymes 04/27/21 04/28/21 04/28/21 Range/Units 21:27 09:23 12:45 Total Creatine Kinase 871 H 9668 H D 78797 H (38-174) U/L Liver Function 04/27/21 Range/Units 20:53 Total Bilirubin 0.5 (0.0-1.0) mg/dL Direct Bilirubin 0.2 (0.0-0.5) mg/dL AST 93 H (5-37) U/L ALT 79 H (0-40) U/L Alkaline Phosphatase 72 D (39-117) U/L Albumin 4.5 (3.5-5.0) g/dL Urine 04/27/21 Range/Units 21:11 Urine Color YELLOW Urine Appearance CLEAR Urine pH 5.5 (5.0-8.0) Ur Specific [place] >= 1.030 H (1.005-1.025) Urine Protein 1+ H (NEG-TRACE) MG/DL Urine Glucose (UA) 500 H (NEG) MG/DL All other labs normal. Assessment and Plan (1) Rhabdomyolysis: Status: Acute the concern here is of development of a compartment syndrome. At the time of my examination motor sensation was intact. The patient had palpable pulses. He complained of equal bilateral calf discomfort. his CK continues to rise from 9000 to the most recent of 11,300. some of that may be due to his overall rhabdomyolysis from being down. He will required admission in observation for minimum of 24 hours. In addition would recommend serial labs every 6 hours of CK and BMP.. We will closely monitor this patient with you. Thank you for allowing us to assist in his care. If there are any questions or concerns please do not hesitate to contact us. (2) ESMER (acute kidney injury): Status: Acute Would recommend aggressive hydration due to the rhabdomyolysis and heroin overdose. Would want to avoid any further kidney injury. We will be obtaining serial labs every 6 hours to closely monitor this. Procedures Date of Service Date of Service: 04/28/21
--- NOTE | 2021-04-28 15:10 | PC.NURSE ---
SLEEPING AND EASILY WOKEN, B/L CALF/LOWER LEG PAIN, R CALF IS MORE TENDER AND APPEARS MORE SWOLLEN AND MORE FIRM THAN A COUPLE HOURS AGO, AWARE AND INFORMED
[2021-04-28] MEDS: Morphine Sulfate 4 MG/ML CARTRIDGE IVPUSH ×2 (15:30→23:14)
[2021-04-28] MEDS: Buprenorphine/Naloxone 8/2 mg FILM 1 FILM SUBLINGUAL ×2 (15:30→22:30)
--- NOTE | 2021-04-28 16:43 | HO.ADDICT_ITS ---
History of Present Illness Date of Service: 04/28/2021 Chief Complaint: Rhabdomyolysis, overdose Reason for Consult: opioid overdose Requesting physician: Zuhair Gonzalez Discussed with referring provider: No Sources of Information: patient interviewed and chart reviewed HPI Narrative: Patient is a 41 year old Citizen Of [place] speaking male who presented to [facility] following opioid overdose and now medically admitted with rhabdo and concern of compartment syndrome Patient was breifly seen in room 21 of main ED. He was awake, alert, and engaged in interview. He was reporting withdrawal symptoms and pain (legs) to this advertising copywriter. Asking for his suboxone as he states he hadn't had it since yesterday. He reports taking medication daily, for the past few months. Per [facility] patient is followed at [facility] for OUD treatment and most recently filled SUboxone 8mg BID 2 weeks rx on 04/24/2021. Additional information and evaluation deferred due to patients level of discomfort and request for medicaitons. Review of Systems Constitutional: Reports as per HPI Comments: chills, irritability, denies vomiting or loose stools Diagnostics Vital Signs (24Hr): Vital Signs - 24 hr 04/27/21 19:53 04/27/21 20:07 04/27/21 22:30 Temperature 96 F L 91.9 F L 98.9 F Pulse Rate 110 H Respiratory Rate 22 H Blood Pressure 134/111 H Pulse Oximetry 93 04/28/21 00:01 04/28/21 00:55 04/28/21 03:59 Temperature Pulse Rate 80 88 63 Respiratory Rate 16 16 16 Blood Pressure 98/62 104/70 92/69 Pulse Oximetry 96 100 96 04/28/21 07:34 04/28/21 09:49 04/28/21 10:58 Temperature Pulse Rate 74 75 78 Respiratory Rate 16 19 19 Blood Pressure 114/61 114/60 Pulse Oximetry 99 100 98 04/28/21 13:38 Temperature Pulse Rate 67 Respiratory Rate 19 Blood Pressure 129/65 Pulse Oximetry 98 BMI result Body Mass Index 24.2 Labs Results: 04/27/21 20:53 04/28/21 11:16 Labs: Laboratory Results - last 48 hr 04/27/21 04/27/21 04/27/21 20:49 20:53 20:53 WBC 15.9 H RBC 5.09 Hgb 14.4 Hct 45.9 MCV 90.2 MCH 28.3 MCHC 31.4 RDW 13.3 Plt Count 198 MPV 10.0 Immature Gran % (Auto) 0.4 Neut % (Auto) 91.6 H Lymph % (Auto) 4.8 L [place] % (Auto) 3.0 Eos % (Auto) 0.1 Baso % (Auto) 0.1 Lymph # (Auto) 0.8 L [place] # (Auto) 0.5 Eos # (Auto) 0.0 Baso # (Auto) 0.0 Abs Immat Gran (auto) 0.07 H Absolute Neuts (auto) 14.6 H Absolute Nucleated RBC 0.000 Nucleated RBC % (auto) 0.0 Smear Tech's Comments VERIFIED ESR PT INR Sodium 143 Potassium 4.7 Chloride 107 Carbon Dioxide 24 Anion Gap 17 BUN 26 H Creatinine 1.43 H Estim Creat Clear Calc 60.7 Estimated GFR 54 Random Glucose 165 H D Lactic Acid Lactic Acid F/U @ 2Hr Calcium 9.4 D Magnesium 2.4 Total Bilirubin 0.5 Direct Bilirubin 0.2 AST 93 H ALT 79 H Alkaline Phosphatase 72 D Total Creatine Kinase C-Reactive Protein 0.09 Total Protein 7.4 Albumin 4.5 Urine Color Urine Appearance Urine pH Ur Specific [place] Urine Protein Urine Glucose (UA) Urine Ketones Urine Blood Urine Nitrite Ur Leukocyte Esterase Urine RBC Urine WBC Ur Squamous Epith Cells Urine Bacteria Hyaline Casts Urine Mucus Urine Opiates Screen Urine Fentanyl Screen Ur Barbiturates Screen Ur Phencyclidine Scrn Ur Amphetamines Screen U Benzodiazepines Scrn Urine Cocaine Screen U Marijuana (THC) Screen Ethyl Alcohol COVID-19 (THU) Negative COVID-19 Clin Com See Note 04/27/21 04/27/21 04/27/21 20:53 20:53 20:53 WBC RBC Hgb Hct MCV MCH MCHC RDW Plt Count MPV Immature Gran % (Auto) Neut % (Auto) Lymph % (Auto) [place] % (Auto) Eos % (Auto) Baso % (Auto) Lymph # (Auto) [place] # (Auto) Eos # (Auto) Baso # (Auto) Abs Immat Gran (auto) Absolute Neuts (auto) Absolute Nucleated RBC Nucleated RBC % (auto) Smear Tech's Comments ESR 2 PT INR Sodium Potassium Chloride Carbon Dioxide Anion Gap BUN Creatinine Estim Creat Clear Calc Estimated GFR Random Glucose Lactic Acid 6.1 H* Lactic Acid F/U @ 2Hr Calcium Magnesium Total Bilirubin Direct Bilirubin AST ALT Alkaline Phosphatase Total Creatine Kinase C-Reactive Protein Total Protein Albumin Urine Color Urine Appearance Urine pH Ur Specific [place] Urine Protein Urine Glucose (UA) Urine Ketones Urine Blood Urine Nitrite Ur Leukocyte Esterase Urine RBC Urine WBC Ur Squamous Epith Cells Urine Bacteria Hyaline Casts Urine Mucus Urine Opiates Screen Urine Fentanyl Screen Ur Barbiturates Screen Ur Phencyclidine Scrn Ur Amphetamines Screen U Benzodiazepines Scrn Urine Cocaine Screen U Marijuana (THC) Screen Ethyl Alcohol < 10 COVID-19 (THU) COVID-19 [employer] 04/27/21 04/27/21 04/27/21 21:11 21:11 21:27 WBC RBC Hgb Hct MCV MCH MCHC RDW Plt Count MPV Immature Gran % (Auto) Neut % (Auto) Lymph % (Auto) [place] % (Auto) Eos % (Auto) Baso % (Auto) Lymph # (Auto) [place] # (Auto) Eos # (Auto) Baso # (Auto) Abs Immat Gran (auto) Absolute Neuts (auto) Absolute Nucleated RBC Nucleated RBC % (auto) Smear Tech's Comments ESR PT INR Sodium Potassium Chloride Carbon Dioxide Anion Gap BUN Creatinine Estim Creat Clear Calc Estimated GFR Random Glucose Lactic Acid Lactic Acid F/U @ 2Hr Calcium Magnesium Total Bilirubin Direct Bilirubin AST ALT Alkaline Phosphatase Total Creatine Kinase 871 H C-Reactive Protein Total Protein Albumin Urine Color YELLOW Urine Appearance CLEAR Urine pH 5.5 Ur Specific [place] >= 1.030 H Urine Protein 1+ H Urine Glucose (UA) 500 H Urine Ketones NEG Urine Blood 2+ H Urine Nitrite NEG Ur Leukocyte Esterase NEG Urine RBC 1-4 Urine WBC 0-2 Ur Squamous Epith Cells TRACE Urine Bacteria NONE Hyaline Casts 0-2 Urine Mucus TRACE Urine Opiates Screen POSITIVE H Urine Fentanyl Screen POSITIVE H Ur Barbiturates Screen Not Detected Ur Phencyclidine Scrn Not Detected Ur Amphetamines Screen Not Detected U Benzodiazepines Scrn Not Detected Urine Cocaine Screen POSITIVE H U Marijuana (THC) Screen POSITIVE H Ethyl Alcohol COVID-19 (THU) COVID-19 [employer] 04/28/21 04/28/21 04/28/21 00:04 09:23 11:16 WBC RBC Hgb Hct MCV MCH MCHC RDW Plt Count MPV Immature Gran % (Auto) Neut % (Auto) Lymph % (Auto) [place] % (Auto) Eos % (Auto) Baso % (Auto) Lymph # (Auto) [place] # (Auto) Eos # (Auto) Baso # (Auto) Abs Immat Gran (auto) Absolute Neuts (auto) Absolute Nucleated RBC Nucleated RBC % (auto) Smear Tech's Comments ESR PT INR Sodium 138 Potassium 4.2 Chloride 106 Carbon Dioxide 28 Anion Gap 8 L BUN 21 H Creatinine 0.94 Estim Creat Clear Calc 92.3 Estimated GFR > 60 Random Glucose 88 D Lactic Acid Lactic Acid F/U @ 2Hr 1.1 Calcium 8.5 D Magnesium Total Bilirubin Direct Bilirubin AST ALT Alkaline Phosphatase Total Creatine Kinase 9668 H D C-Reactive Protein Total Protein Albumin Urine Color Urine Appearance Urine pH Ur Specific [place] Urine Protein Urine Glucose (UA) Urine Ketones Urine Blood Urine Nitrite Ur Leukocyte Esterase Urine RBC Urine WBC Ur Squamous Epith Cells Urine Bacteria Hyaline Casts Urine Mucus Urine Opiates Screen Urine Fentanyl Screen Ur Barbiturates Screen Ur Phencyclidine Scrn Ur Amphetamines Screen U Benzodiazepines Scrn Urine Cocaine Screen U Marijuana (THC) Screen Ethyl Alcohol COVID-19 (THU) COVID-19 [employer] 04/28/21 04/28/21 11:16 12:45 WBC RBC Hgb Hct MCV MCH MCHC RDW Plt Count MPV Immature Gran % (Auto) Neut % (Auto) Lymph % (Auto) [place] % (Auto) Eos % (Auto) Baso % (Auto) Lymph # (Auto) [place] # (Auto) Eos # (Auto) Baso # (Auto) Abs Immat Gran (auto) Absolute Neuts (auto) Absolute Nucleated RBC Nucleated RBC % (auto) Smear Tech's Comments ESR PT 12.4 INR 1.1 Sodium Potassium Chloride Carbon Dioxide Anion Gap BUN Creatinine Estim Creat Clear Calc Estimated GFR Random Glucose Lactic Acid Lactic Acid F/U @ 2Hr Calcium Magnesium Total Bilirubin Direct Bilirubin AST ALT Alkaline Phosphatase Total Creatine Kinase 62675 H C-Reactive Protein Total Protein Albumin Urine Color Urine Appearance Urine pH Ur Specific [place] Urine Protein Urine Glucose (UA) Urine Ketones Urine Blood Urine Nitrite Ur Leukocyte Esterase Urine RBC Urine WBC Ur Squamous Epith Cells Urine Bacteria Hyaline Casts Urine Mucus Urine Opiates Screen Urine Fentanyl Screen Ur Barbiturates Screen Ur Phencyclidine Scrn Ur Amphetamines Screen U Benzodiazepines Scrn Urine Cocaine Screen U Marijuana (THC) Screen Ethyl Alcohol COVID-19 (THU) COVID-19 [employer] Com Imaging Radiology Impressions: ITS Impressions Chest X-Ray 04/27/21 21:33 IMPRESSION: No acute cardiopulmonary findings Mental Status Exam Mental Status Exam Patient Appearance: Appropriate (hospital attire ) Patient Behavior: Appropriate and Anxious Patient Cognition Impaired: No Judgement: Fair Medications Medications Current Medications Acetaminophen (Acetaminophen 325 Mg Tablet) 650 mg PO Q6H PRN PRN Reason: Pain, Mild (Pain Scale 1-3) Buprenorphine/Naloxone (Buprenorphine/Naloxone 8/2 Mg Film) 1 film [facility]BL[facility]UAL BID [facility] Enoxaparin Sodium (Enoxaparin Sodium 40 Mg/0.4 Ml Syringe) 40 mg SUBCUT Q24H S Last Admin: 04/28/21 15:34 Dose: Not Given Documented by: Sodium Bicarbonate 150 meq/ (Dextrose) 1,000 mls @ 150 mls/hr IV .Q6H40M [facility] Last Admin: 04/28/21 11:05 Dose: 50 mls/hr Documented by: Morphine Sulfate (Morphine Sulfate 4 Mg/Ml Cartridge) 4 mg IVPUSH Q2H PRN; Protocol PRN Reason: severe pain Last Admin: 04/28/21 15:30 Dose: 4 mg Documented by: Ondansetron HCl (Ondansetron Hcl 4 Mg/2 Ml Vial) 4 mg IVPUSH Q8H PRN PRN Reason: Nausea and Vomiting Pharmacy Consult (Consult Rx Vancomycin Dosing) 1 each MISCELLANE DAILY PRN PRN Reason: Consult order Sodium Chloride (0.9 % Sodium Chloride Flush 3 Ml Syringe) 3 ml IVFLUSH QSHIFT [facility] Allergies Allergies Allergy/AdvReac Type Severity Reaction Status Date / Time No Known Allergies Allergy Verified 08/11/20 15:00 [No Known Allergies*] Assessment & Plan Assessment & Plan (1) Opioid use disorder: Status: Acute Code(s): F11.90 - Opioid use, unspecified, uncomplicated Assessment and Plan: * suboxone already ordered 8mg BID--should continue * requested provider give 8mg dose now and he can have HS dose too * will follow up in AM to discuss recovery supports I spent __15 ____ minutes with the patient and/or on the patient floor today, greater than?50% of which was spent counseling/coordinating care. [facility] Past Medical History Medical History (Updated 04/28/21 @ 16:50 by Maricarmen Cox CNP) History of hepatitis C Opioid use disorder Social History Social History Alcohol intake: current Patient Tobacco Use Status: Current everyday Tobacco user Use of substances other than those prescribed or required for medical reasons: Yes Substance Use Type: Crack/Cocaine, Heroin, Marijuana and Opiates Advance Directives: No
[2021-04-28] MEDS: Enoxaparin Sodium 40 MG/0.4 ML SYRINGE SUBCUT (19:07)
[2021-04-29] MEDS: Morphine Sulfate 4 MG/ML CARTRIDGE IVPUSH ×4 (05:01→23:57)
[2021-04-29 07:02] LABS: Hematocrit 36.7 % (42.0-52.0); Hemoglobin 11.6 g/dl (14.0-18.0); Mean Corpuscular HGB Conc 31.6 g/dl (31.0-36.0); Mean Corpuscular Hemoglobin 28.1 pg (27.0-33.0); Mean Corpuscular Volume 88.9 fL (80.0-98.0); Red Blood Count 4.13 X10*6/uL (4.60-5.80); Red Cell Distribution Width 13.2 % (11.0-16.0); White Blood Count 7.3 X10*3/uL (4.8-10.8)
[2021-04-29 07:18] LABS: Mean Platelet Volume 10.2 fL (9.4-12.4)
[2021-04-29 07:19] LABS: Platelet Count 140 X10*3/uL (160-400)
[2021-04-29 08:19] LABS: Anion Gap 9 (12-20); Blood Urea Nitrogen 12 mg/dL (9-16); Calcium 8.4 mg/dL (8.4-10.2); Carbon Dioxide 36 mmol/L (22-29); Chloride 101 mmol/L (96-108); Creatinine Clr Calc Pharmacy 96.4; Estimated Glomerular Filt Rate > 60; Glucose Random 116 mg/dL (60-115); Potassium 4.2 mmol/L (3.3-5.1); Sodium 142 mmol/L (135-145)
--- NOTE | 2021-04-29 09:07 | HO.VASCPN ---
Subjective Subjective Date of Service: 04/29/21 Patient reports: no new complaints and feels better Interval history: 41-year-old gentleman presents for follow-up evaluation regarding his lower extremities. He was admitted yesterday after heroin overdose and being found for several hours. He complained of bilateral lower extremity calf pain. He reports that it has significantly improved this morning. He has been up and ambulating and to the restroom twice this morning with no difficulty. He now presents for follow-up. Physical Exam Vital Signs: Vital Signs: Last Vital Signs Temp 98.9 F 04/27/21 22:30 Pulse 67 04/28/21 13:38 Resp 19 04/28/21 13:38 BP 129/65 04/28/21 13:38 Pulse Ox 98 04/28/21 13:38 BMI result Body Mass Index 24.2 Const: General: cooperative, healthy appearing and no acute distress Orientation/consciousness: oriented to person, oriented to place and oriented to time HENMT: Head: Yes normal to inspection Neck: Carotids: no bruits Chest: Chest palpation & inspection: normal inspection of the chest Resp: Effort & Inspection: normal respiratory effort and able to speak in complete sentences Auscultation: clear to auscultation bilaterally Cardio: Rate: regular rate Heart sounds: S1 normal heart sound present and S2 normal heart sound present GI: Inspection: Yes normal to inspection Skin: General skin exam: no rashes or lesions noted Wounds: no wounds Neuro: General: oriented to person, oriented to place, oriented to time and CN's II-XI intact bilaterally Extrem: General: Yes normal to inspection, Yes full ROM and Yes no clubbing, cyanosis or edema Psych: Appearance: grossly normal and well kempt Speech and movement: Normal speech and movement present Affect: normal affect Progress Note: A&P Assessment and plan (1) Rhabdomyolysis: Status: Acute Assessment and Plan: In short patient does not appear to have developed compartment syndrome. His kidney function has stabilized. In addition [place] 13,000 [place] [id number] this morning. Her he is ambulating without difficulty. Would advance diet. Would make sure he is stable from medical perspective over the next day or 2. He is stable from a vascular perspective. We will follow as needed. Thank you for allowing us to assist in his care. If there are any questions or concerns please do not hesitate to contact us. Fall Risk Details Current Medications: Current Medications Acetaminophen (Acetaminophen 325 Mg Tablet) 650 mg PO Q6H PRN PRN Reason: Pain, Mild (Pain Scale 1-3) Buprenorphine/Naloxone (Buprenorphine/Naloxone 8/2 Mg Film) 1 film SUBLINGUAL BID [facility] Last Admin: 04/28/21 22:30 Dose: 1 film Documented by: Enoxaparin Sodium (Enoxaparin Sodium 40 Mg/0.4 Ml Syringe) 40 mg SUBCUT Q24H [facility] Last Admin: 04/28/21 19:07 Dose: 40 mg Documented by: Sodium Bicarbonate 150 meq/ (Dextrose) 1,000 mls @ 150 mls/hr IV .Q6H40M [facility] Last Admin: 04/29/21 04:49 Dose: Not Given Documented by: Morphine Sulfate (Morphine Sulfate 4 Mg/Ml Cartridge) 4 mg IVPUSH Q2H PRN; Protocol PRN Reason: severe pain Last Admin: 04/29/21 05:01 Dose: 4 mg Documented by: Ondansetron HCl (Ondansetron Hcl 4 Mg/2 Ml Vial) 4 mg IVPUSH Q8H PRN PRN Reason: Nausea and Vomiting Pharmacy Consult (Consult Rx Vancomycin Dosing) 1 each MISCELLANE DAILY PRN PRN Reason: Consult order Sodium Chloride (0.9 % Sodium Chloride Flush 3 Ml Syringe) 3 ml IVFLUSH QSHIFT [facility] Last Admin: 04/29/21 06:18 Dose: Not Given Documented by: Time Spent With Patient Time: Total time spent is greater than 50% in coordination of care (as documented) at patient's floor/unit and/or counseling patient: Time with patient: 15 - 24 minutes Procedures Date of Service Date of Service: 04/29/21 Quality Stroke Does the patient have a stroke diagnosis?: No VTE Prior VTE?: No VTE Risk Level:: Medical - moderate - high VTE Device Contraindication: N/A - Device Ordered VTE Drug Contraindication: N/A - Med Ordered
[2021-04-29 09:12] LABS: HIV AB/AG Nonreactive (Nonreactive); HIV Num 1 0.19 S/CO (0.00-0.99)
[2021-04-29] MEDS: Buprenorphine/Naloxone 8/2 mg FILM 1 FILM SUBLINGUAL ×2 (09:15→21:00)
--- NOTE | 2021-04-29 09:38 | P.PNIM_ITS ---
Subjective Subjective Date of Service: 04/29/21 Interval History: This history was taken in [place] from the patient. Leg pain improved and pt now ambulatory No N/V Review of Systems Review of Systems: Yes all other systems are reviewed and are negative Physical Exam Vital Signs: Vital Signs: Last Vital Signs Temp 98.9 F 04/27/21 22:30 Pulse 67 04/28/21 13:38 Resp 19 04/28/21 13:38 BP 129/65 04/28/21 13:38 Pulse Ox 98 04/28/21 13:38 BMI result Body Mass Index 24.2 Gen: in no acute distress HEENT: sclera anicteric, moist mucus membranes Neck: supple Lungs: clear to auscultation bilaterally Heart: regular rate and rhythm, no murmurs Abd: soft, non-tender, non-distended Ext: no edema Skin: warm/well-perfused Neuro: alert and oriented x3, no focal findings Psych: appropriate affect Objective Data Active Medications Acetaminophen (Acetaminophen 325 Mg Tablet) 650 mg PO Q6H PRN PRN Reason: Pain, Mild (Pain Scale 1-3) Buprenorphine/Naloxone (Buprenorphine/Naloxone 8/2 Mg Film) 1 film SUBLINGUAL BID [facility] Last Admin: 04/29/21 09:15 Dose: 1 film Documented by: ADIN Enoxaparin Sodium (Enoxaparin Sodium 40 Mg/0.4 Ml Syringe) 40 mg SUBCUT Q24H [facility] Last Admin: 04/28/21 19:07 Dose: 40 mg Documented by: JACQUE Sodium Bicarbonate 150 meq/ (Dextrose) 1,000 mls @ 150 mls/hr IV .Q6H40M [facility] Last Admin: 04/29/21 04:49 Dose: Not Given Documented by: FESTUS Non-Admin Reason: IV Running Morphine Sulfate (Morphine Sulfate 4 Mg/Ml Cartridge) 4 mg IVPUSH Q2H PRN; Protocol PRN Reason: severe pain Last Admin: 04/29/21 05:01 Dose: 4 mg Documented by: FESTUS Ondansetron HCl (Ondansetron Hcl 4 Mg/2 Ml Vial) 4 mg IVPUSH Q8H PRN PRN Reason: Nausea and Vomiting Pharmacy Consult (Consult Rx Vancomycin Dosing) 1 each MISCELLANE DAILY PRN PRN Reason: Consult order Sodium Chloride (0.9 % Sodium Chloride Flush 3 Ml Syringe) 3 ml IVFLUSH QSHIFT [facility] Last Admin: 04/29/21 09:15 Dose: Not Given Documented by: ADIN Non-Admin Reason: IV Running Labs CBC & Chem 7: 04/29/21 06:29 04/29/21 06:29 Labs: Laboratory Results - last 24 hr 04/28/21 04/28/21 04/28/21 09:23 11:16 11:16 MCV MCH MCHC RDW Plt Count MPV Absolute Nucleated RBC Nucleated RBC % (auto) PT 12.4 INR 1.1 Anion Gap 8 L Estim Creat Clear Calc 92.3 Estimated GFR > 60 Random Glucose 88 D Calcium 8.5 D Total Creatine Kinase 9668 H D HIV 1&2 Ab/P24 Ag 4thGn 04/28/21 04/29/21 04/29/21 12:45 00:07 06:29 MCV MCH MCHC RDW Plt Count MPV Absolute Nucleated RBC Nucleated RBC % (auto) PT INR Anion Gap Cancelled Estim Creat Clear Calc Cancelled Estimated GFR Cancelled Random Glucose Cancelled Calcium Cancelled Total Creatine Kinase 24826 H 63121 H HIV 1&2 Ab/P24 Ag 4thGn Nonreactive 04/29/21 04/29/21 06:29 06:29 MCV 88.9 MCH 28.1 MCHC 31.6 RDW 13.2 Plt Count 140 L D MPV 10.2 Absolute Nucleated RBC 0.000 Nucleated RBC % (auto) 0.0 PT INR Anion Gap 9 L Estim Creat Clear Calc 96.4 Estimated GFR > 60 Random Glucose 116 H Calcium 8.4 Total Creatine Kinase 92919 H HIV 1&2 Ab/P24 Ag 4thGn Microbiology Microbiology Results: Microbiology 04/27/21 21:27 Blood Culture - Preliminary Blood - Venous No growth after 24 hours. 04/27/21 21:27 Blood Culture - Preliminary Blood - Venous No growth after 24 hours. Assessment and Plan (1) Opioid use disorder: Status: Acute (2) Accidental heroin overdose: Status: Acute (3) Hypothermia due to exposure: Status: Acute (4) ESMER (acute kidney injury): Status: Acute (5) Rhabdomyolysis: Status: Acute Plan hospital d#2 41yo M with opioid and cocaine use disorder presenting after overdose and being packed with ice by his mother in attempt to wake him up.? Reversed with naloxone by EMS and brought in hypothermic with lactic acidosis, which have all resolved.? Found to have rhabdomyolysis. # rhabdomyolysis - likely due to cocaine + being down after opioid overdose.?continue isotonic bicarbonate infusion and monitor CPK, which has hopefully plateaued - discussed with Vascular Surgery; no compartment syndrome suspicion # lactic acidosis # hypothermia # ESMER - resolved in the ED # opioid use disorder # cocaine use disorder - Addiction Med + CARE Team consults - resume home dose of Suboxone 8/2 mg bid - update HIV screen.? he is HBV immune.? HCV Ab historically positive; rescreen with viral load # VTE ppx - LMWH Quality Stroke Does the patient have a stroke diagnosis?: No VTE Prior VTE?: No VTE Risk Level:: Medical - moderate - high VTE Device Contraindication: N/A - Device Ordered VTE Drug Contraindication: N/A - Med Ordered
--- NOTE | 2021-04-29 11:36 | PC.NURSE ---
Pt sleeping, awakens to name. No signs of distress noted, IV fluids running as per MAY orders. Medicated as per MAY orders, pt ambulates with no assisantce to the BR. Call francis within reach, will continue to monitr.
[2021-04-29] MEDS: Sodium Bicarbonate 8.4% 150 MEQ in Dextrose 5 % 850 ML IV ×2 (11:42→21:00)
--- NOTE | 2021-04-29 14:56 | P.PNADD_ITS ---
Subjective Subjective Date of Service: 04/29/21 Reason For Visit: Rhabdomyolysis, overdose Interim History: Patient reports he is feeling better, but still experiencing some discomfort in his legs and back Resumed suboxone without issue\ Discussed what led up to overdose. Patient citing issues at home, interpersonal relationship issues. Did not want to discuss any further Upset with himself as he had been doing good! I have been 4 months on Suboxone, I go to appointments eery 2 weeks now . He reports he used one bag intranasally. Patient is followed by [facility] for MOUD treatment, and asked this specification writer to let them know he was hospitalized. This specification writer spoke to EFREN Gomez at [facility]. Patient scheduled to be seen there on 05/01 Review of Systems Constitutional: Reports as per [facility] Mental Status Exam Mental Status Exam Patient Appearance: Appropriate Patient Orientation: Person, Place, Time and Situation Level of Consciousness: Awake and Appropriate Patient Behavior: Appropriate and Talkative Mood Description: Appropriate Affect Description: Calm Thought Process: Goal Oriented Thought Content: positive for Goal Oriented Judgement: Fair Diagnostics Vital Signs (24Hr): BMI result Body Mass Index 24.2 Labs Results: 04/29/21 06:29 04/29/21 06:29 Labs: Laboratory Results - last 48 hr 04/27/21 04/27/21 04/27/21 20:49 20:53 20:53 WBC 15.9 H RBC 5.09 Hgb 14.4 Hct 45.9 MCV 90.2 MCH 28.3 MCHC 31.4 RDW 13.3 Plt Count 198 MPV 10.0 Immature Gran % (Auto) 0.4 Neut % (Auto) 91.6 H Lymph % (Auto) 4.8 L [place] % (Auto) 3.0 Eos % (Auto) 0.1 Baso % (Auto) 0.1 Lymph # (Auto) 0.8 L [place] # (Auto) 0.5 Eos # (Auto) 0.0 Baso # (Auto) 0.0 Abs Immat Gran (auto) 0.07 H Absolute Neuts (auto) 14.6 H Absolute Nucleated RBC 0.000 Nucleated RBC % (auto) 0.0 Smear Tech's Comments VERIFIED ESR PT INR Sodium 143 Potassium 4.7 Chloride 107 Carbon Dioxide 24 Anion Gap 17 BUN 26 H Creatinine 1.43 H Estim Creat Clear Calc 60.7 Estimated GFR 54 Random Glucose 165 H D Lactic Acid Lactic Acid F/U @ 2Hr Calcium 9.4 D Magnesium 2.4 Total Bilirubin 0.5 Direct Bilirubin 0.2 AST 93 H ALT 79 H Alkaline Phosphatase 72 D Total Creatine Kinase C-Reactive Protein 0.09 Total Protein 7.4 Albumin 4.5 Urine Color Urine Appearance Urine pH Ur Specific [place] Urine Protein Urine Glucose (UA) Urine Ketones Urine Blood Urine Nitrite Ur Leukocyte Esterase Urine RBC Urine WBC Ur Squamous Epith Cells Urine Bacteria Hyaline Casts Urine Mucus Urine Opiates Screen Urine Fentanyl Screen Ur Barbiturates Screen Ur Phencyclidine Scrn Ur Amphetamines Screen U Benzodiazepines Scrn Urine Cocaine Screen U Marijuana (THC) Screen Ethyl Alcohol COVID-19 (THU) Negative COVID-19 Clin Com See Note HIV 1&2 Ab/P24 Ag 4thGn 04/27/21 04/27/21 04/27/21 20:53 20:53 20:53 WBC RBC Hgb Hct MCV MCH MCHC RDW Plt Count MPV Immature Gran % (Auto) Neut % (Auto) Lymph % (Auto) [place] % (Auto) Eos % (Auto) Baso % (Auto) Lymph # (Auto) [place] # (Auto) Eos # (Auto) Baso # (Auto) Abs Immat Gran (auto) Absolute Neuts (auto) Absolute Nucleated RBC Nucleated RBC % (auto) Smear Tech's Comments ESR 2 PT INR Sodium Potassium Chloride Carbon Dioxide Anion Gap BUN Creatinine Estim Creat Clear Calc Estimated GFR Random Glucose Lactic Acid 6.1 H* Lactic Acid F/U @ 2Hr Calcium Magnesium Total Bilirubin Direct Bilirubin AST ALT Alkaline Phosphatase Total Creatine Kinase C-Reactive Protein Total Protein Albumin Urine Color Urine Appearance Urine pH Ur Specific [place] Urine Protein Urine Glucose (UA) Urine Ketones Urine Blood Urine Nitrite Ur Leukocyte Esterase Urine RBC Urine WBC Ur Squamous Epith Cells Urine Bacteria Hyaline Casts Urine Mucus Urine Opiates Screen Urine Fentanyl Screen Ur Barbiturates Screen Ur Phencyclidine Scrn Ur Amphetamines Screen U Benzodiazepines Scrn Urine Cocaine Screen U Marijuana (THC) Screen Ethyl Alcohol < 10 COVID-19 (THU) COVID-19 Clin Com HIV 1&2 Ab/P24 Ag 4thGn 04/27/21 04/27/21 04/27/21 21:11 21:11 21:27 WBC RBC Hgb Hct MCV MCH MCHC RDW Plt Count MPV Immature Gran % (Auto) Neut % (Auto) Lymph % (Auto) [place] % (Auto) Eos % (Auto) Baso % (Auto) Lymph # (Auto) [place] # (Auto) Eos # (Auto) Baso # (Auto) Abs Immat Gran (auto) Absolute Neuts (auto) Absolute Nucleated RBC Nucleated RBC % (auto) Smear Tech's Comments ESR PT INR Sodium Potassium Chloride Carbon Dioxide Anion Gap BUN Creatinine Estim Creat Clear Calc Estimated GFR Random Glucose Lactic Acid Lactic Acid F/U @ 2Hr Calcium Magnesium Total Bilirubin Direct Bilirubin AST ALT Alkaline Phosphatase Total Creatine Kinase 871 H C-Reactive Protein Total Protein Albumin Urine Color YELLOW Urine Appearance CLEAR Urine pH 5.5 Ur Specific [place] >= 1.030 H Urine Protein 1+ H Urine Glucose (UA) 500 H Urine Ketones NEG Urine Blood 2+ H Urine Nitrite NEG Ur Leukocyte Esterase NEG Urine RBC 1-4 Urine WBC 0-2 Ur Squamous Epith Cells TRACE Urine Bacteria NONE Hyaline Casts 0-2 Urine Mucus TRACE Urine Opiates Screen POSITIVE H Urine Fentanyl Screen POSITIVE H Ur Barbiturates Screen Not Detected Ur Phencyclidine Scrn Not Detected Ur Amphetamines Screen Not Detected U Benzodiazepines Scrn Not Detected Urine Cocaine Screen POSITIVE H U Marijuana (THC) Screen POSITIVE H Ethyl Alcohol COVID-19 (THU) COVID-19 Clin Com HIV 1&2 Ab/P24 Ag 4thGn 04/28/21 04/28/21 04/28/21 00:04 09:23 11:16 WBC RBC Hgb Hct MCV MCH MCHC RDW Plt Count MPV Immature Gran % (Auto) Neut % (Auto) Lymph % (Auto) [place] % (Auto) Eos % (Auto) Baso % (Auto) Lymph # (Auto) [place] # (Auto) Eos # (Auto) Baso # (Auto) Abs Immat Gran (auto) Absolute Neuts (auto) Absolute Nucleated RBC Nucleated RBC % (auto) Smear Tech's Comments ESR PT INR Sodium 138 Potassium 4.2 Chloride 106 Carbon Dioxide 28 Anion Gap 8 L BUN 21 H Creatinine 0.94 Estim Creat Clear Calc 92.3 Estimated GFR > 60 Random Glucose 88 D Lactic Acid Lactic Acid F/U @ 2Hr 1.1 Calcium 8.5 D Magnesium Total Bilirubin Direct Bilirubin AST ALT Alkaline Phosphatase Total Creatine Kinase 9668 H D C-Reactive Protein Total Protein Albumin Urine Color Urine Appearance Urine pH Ur Specific [place] Urine Protein Urine Glucose (UA) Urine Ketones Urine Blood Urine Nitrite Ur Leukocyte Esterase Urine RBC Urine WBC Ur Squamous Epith Cells Urine Bacteria Hyaline Casts Urine Mucus Urine Opiates Screen Urine Fentanyl Screen Ur Barbiturates Screen Ur Phencyclidine Scrn Ur Amphetamines Screen U Benzodiazepines Scrn Urine Cocaine Screen U Marijuana (THC) Screen Ethyl Alcohol COVID-19 (THU) COVID-19 Clin Com HIV 1&2 Ab/P24 Ag 4thGn 04/28/21 04/28/21 04/29/21 11:16 12:45 00:07 WBC RBC Hgb Hct MCV MCH MCHC RDW Plt Count MPV Immature Gran % (Auto) Neut % (Auto) Lymph % (Auto) [place] % (Auto) Eos % (Auto) Baso % (Auto) Lymph # (Auto) [place] # (Auto) Eos # (Auto) Baso # (Auto) Abs Immat Gran (auto) Absolute Neuts (auto) Absolute Nucleated RBC Nucleated RBC % (auto) Smear Tech's Comments ESR PT 12.4 INR 1.1 Sodium Cancelled Potassium Cancelled Chloride Cancelled Carbon Dioxide Cancelled Anion Gap Cancelled BUN Cancelled Creatinine Cancelled Estim Creat Clear Calc Cancelled Estimated GFR Cancelled Random Glucose Cancelled Lactic Acid Lactic Acid F/U @ 2Hr Calcium Cancelled Magnesium Total Bilirubin Direct Bilirubin AST ALT Alkaline Phosphatase Total Creatine Kinase 38292 H 45474 H C-Reactive Protein Total Protein Albumin Urine Color Urine Appearance Urine pH Ur Specific [place] Urine Protein Urine Glucose (UA) Urine Ketones Urine Blood Urine Nitrite Ur Leukocyte Esterase Urine RBC Urine WBC Ur Squamous Epith Cells Urine Bacteria Hyaline Casts Urine Mucus Urine Opiates Screen Urine Fentanyl Screen Ur Barbiturates Screen Ur Phencyclidine Scrn Ur Amphetamines Screen U Benzodiazepines Scrn Urine Cocaine Screen U Marijuana (THC) Screen Ethyl Alcohol COVID-19 (THU) COVID-19 Clin Com HIV 1&2 Ab/P24 Ag 4thGn 04/29/21 04/29/21 04/29/21 06:29 06:29 06:29 WBC 7.3 RBC 4.13 L Hgb 11.6 L Hct 36.7 L D MCV 88.9 MCH 28.1 MCHC 31.6 RDW 13.2 Plt Count 140 L D MPV 10.2 Immature Gran % (Auto) Neut % (Auto) Lymph % (Auto) [place] % (Auto) Eos % (Auto) Baso % (Auto) Lymph # (Auto) [place] # (Auto) Eos # (Auto) Baso # (Auto) Abs Immat Gran (auto) Absolute Neuts (auto) Absolute Nucleated RBC 0.000 Nucleated RBC % (auto) 0.0 Smear Tech's Comments ESR PT INR Sodium 142 Potassium 4.2 Chloride 101 Carbon Dioxide 36 H Anion Gap 9 L BUN 12 Creatinine 0.90 Estim Creat Clear Calc 96.4 Estimated GFR > 60 Random Glucose 116 H Lactic Acid Lactic Acid F/U @ 2Hr Calcium 8.4 Magnesium Total Bilirubin Direct Bilirubin AST ALT Alkaline Phosphatase Total Creatine Kinase 41161 H C-Reactive Protein Total Protein Albumin Urine Color Urine Appearance Urine pH Ur Specific [place] Urine Protein Urine Glucose (UA) Urine Ketones Urine Blood Urine Nitrite Ur Leukocyte Esterase Urine RBC Urine WBC Ur Squamous Epith Cells Urine Bacteria Hyaline Casts Urine Mucus Urine Opiates Screen Urine Fentanyl Screen Ur Barbiturates Screen Ur Phencyclidine Scrn Ur Amphetamines Screen U Benzodiazepines Scrn Urine Cocaine Screen U Marijuana (THC) Screen Ethyl Alcohol COVID-19 (THU) COVID-19 [place] Com HIV 1&2 Ab/P24 Ag 4thGn Nonreactive 04/29/21 12:13 WBC RBC Hgb Hct MCV MCH MCHC RDW Plt Count MPV Immature Gran % (Auto) Neut % (Auto) Lymph % (Auto) [place] % (Auto) Eos % (Auto) Baso % (Auto) Lymph # (Auto) [place] # (Auto) Eos # (Auto) Baso # (Auto) Abs Immat Gran (auto) Absolute Neuts (auto) Absolute Nucleated RBC Nucleated RBC % (auto) Smear Tech's Comments ESR PT INR Sodium Potassium Chloride Carbon Dioxide Anion Gap BUN Creatinine Estim Creat Clear Calc Estimated GFR Random Glucose Lactic Acid Lactic Acid F/U @ 2Hr Calcium Magnesium Total Bilirubin Direct Bilirubin AST ALT Alkaline Phosphatase Total Creatine Kinase 59123 H C-Reactive Protein Total Protein Albumin Urine Color Urine Appearance Urine pH Ur Specific [place] Urine Protein Urine Glucose (UA) Urine Ketones Urine Blood Urine Nitrite Ur Leukocyte Esterase Urine RBC Urine WBC Ur Squamous Epith Cells Urine Bacteria Hyaline Casts Urine Mucus Urine Opiates Screen Urine Fentanyl Screen Ur Barbiturates Screen Ur Phencyclidine Scrn Ur Amphetamines Screen U Benzodiazepines Scrn Urine Cocaine Screen U Marijuana (THC) Screen Ethyl Alcohol COVID-19 (THU) COVID-19 Clin Com HIV 1&2 Ab/P24 Ag 4thGn Imaging Radiology Impressions: ITS Impressions Chest X-Ray 04/27/21 21:33 IMPRESSION: No acute cardiopulmonary findings Medications Medications Current Medications Acetaminophen (Acetaminophen 325 Mg Tablet) 650 mg PO Q6H PRN PRN Reason: Pain, Mild (Pain Scale 1-3) Buprenorphine/Naloxone (Buprenorphine/Naloxone 8/2 Mg Film) 1 film SUBLINGUAL BID [facility] Last Admin: 04/29/21 09:15 Dose: 1 film Documented by: Enoxaparin Sodium (Enoxaparin Sodium 40 Mg/0.4 Ml Syringe) 40 mg SUBCUT Q24H [facility] Last Admin: 04/28/21 19:07 Dose: 40 mg Documented by: Sodium Bicarbonate 150 meq/ (Dextrose) 1,000 mls @ 150 mls/hr IV .Q6H40M [facility] Last Admin: 04/29/21 11:42 Dose: 150 mls/hr Documented by: Morphine Sulfate (Morphine Sulfate 4 Mg/Ml Cartridge) 4 mg IVPUSH Q2H PRN; Protocol PRN Reason: severe pain Last Admin: 04/29/21 05:01 Dose: 4 mg Documented by: Ondansetron HCl (Ondansetron Hcl 4 Mg/2 Ml Vial) 4 mg IVPUSH Q8H PRN PRN Reason: Nausea and Vomiting Pharmacy Consult (Consult Rx Vancomycin Dosing) 1 each MISCELLANE DAILY PRN PRN Reason: Consult order Sodium Chloride (0.9 % Sodium Chloride Flush 3 Ml Syringe) 3 ml IVFLUSH QSHIFT [facility] Last Admin: 04/29/21 11:44 Dose: Not Given Documented by: Allergies Allergies Allergy/AdvReac Type Severity Reaction Status Date / Time No Known Allergies Allergy Verified 08/11/20 15:00 [No Known Allergies*] Assessment & Plan Assessment & Plan (1) Opioid use disorder: Status: Acute Code(s): F11.90 - Opioid use, unspecified, uncomplicated Assessment and Plan: * continue suboxone at current dose * at time of discharge ensure patient has narcan as he reported he has no more at home * risk reduction discussion with patient I spent __25____ minutes with the patient and/or on the patient floor today, greater than?50% of which was spent counseling/coordinating care.
--- NOTE | 2021-04-29 15:07 | MHC.CM.PN ---
Attempted to meet with patient in regards to discharge planning. Patient is currently sleeping. No family present. Will attempt to meet again. Continue to monitor for d/c needs.
--- NOTE | 2021-04-29 16:04 | MHC.CM.PN ---
PATIENT ASLEEP. ACCORDING TO REVIEW OF NOTES, PATIENT IS INDEPENDENT WITH HIS ADLS AND HAS SUPPORTS IN PLACE FOR SUBSTANCE ABUSE RECOVERY ASSISTANCE. NO HCP ON FILE AND CASE MANAGEMENT WILLING TO ASSIST WITH COMPLETION IF HE CHOOSES TO DO SO ACCORDING TO CARE TEAM CONVERSATION WITH PATIENT, HE DID HAVE A COURT DATE TODAY.
--- NOTE | 2021-04-29 16:19 | PC.NURSE ---
Pt requested pain medication, specifically morphine from Tech, upon my entrance in the room, pt sleeping comfortably, Will hold off due to patient sleeping and in NAD.
[2021-04-29] MEDS: Enoxaparin Sodium 40 MG/0.4 ML SYRINGE SUBCUT (16:38)
[2021-04-29 20:38] VITALS: BP 134/77; PULSE 66; RESP 15; O2SAT 99
[2021-04-30] MEDS: Sodium Bicarbonate 8.4% 150 MEQ in Dextrose 5 % 850 ML IV ×3 (05:34→19:49)
--- NOTE | 2021-04-30 05:53 | PC.NURSE ---
RN assumed care at 1900. Patient received pain medication throughout the night per MAY. Engageable and pleasant with staff. Slept throughout the night, will continue to monitor
[2021-04-30 07:48] LABS: Anion Gap 9 (12-20); Blood Urea Nitrogen 9 mg/dL (9-16); Calcium 8.8 mg/dL (8.4-10.2); Carbon Dioxide 39 mmol/L (22-29); Chloride 98 mmol/L (96-108); Creatinine Clr Calc Pharmacy 93.3; Estimated Glomerular Filt Rate > 60; Glucose Random 107 mg/dL (60-115); Potassium 4.2 mmol/L (3.3-5.1); Sodium 142 mmol/L (135-145)
[2021-04-30] MEDS: Buprenorphine/Naloxone 8/2 mg FILM 1 FILM SUBLINGUAL ×2 (08:48→21:16)
--- NOTE | 2021-04-30 11:40 | PC.NURSE ---
Pt A&Ox3, pain 09/28 to RLE, swelling and tightness remains present at this time. + pulse, +CMS. Pt ambulates with no assistance, took shower this AM. LCA, R hand IV fell out while patient was in the bathroom, replaced IV to 20G L forearm, fluids running as per [facility] orders, call francis within reach. Will continue to monitor.
[2021-04-30 13:06] VITALS: BP 144/78; PULSE 65; RESP 16; TEMP 36.6; O2SAT 99
--- NOTE | 2021-04-30 14:35 | P.PNIM_ITS ---
Subjective Subjective Date of Service: 04/30/21 Interval History: This history was taken in [place]ic from the patient. Ongoing RLE pain. CPK coming down. Review of Systems Review of Systems: Yes all other systems are reviewed and are negative Physical Exam Vital Signs: Vital Signs: Last Vital Signs Temp 97.9 F 04/30/21 13:06 Pulse 65 04/30/21 13:06 Resp 16 04/30/21 13:06 BP 144/78 H 04/30/21 13:06 Pulse Ox 99 04/30/21 13:06 BMI result Body Mass Index 24.2 Gen: in no acute distress HEENT: sclera anicteric, moist mucus membranes Neck: supple Lungs: clear to auscultation bilaterally Heart: regular rate and rhythm, no murmurs Abd: soft, non-tender, non-distended Ext: R calf tight, swollen Skin: warm/well-perfused Neuro: alert and oriented x3, no focal findings Psych: appropriate affect Objective Data Active Medications Acetaminophen (Acetaminophen 325 Mg Tablet) 650 mg PO Q6H PRN PRN Reason: Pain, Mild (Pain Scale 1-3) Buprenorphine/Naloxone (Buprenorphine/Naloxone 8/2 Mg Film) 1 film SUBLINGUAL BID [facility] Last Admin: 04/30/21 08:48 Dose: 1 film Documented by: ADIN Enoxaparin Sodium (Enoxaparin Sodium 40 Mg/0.4 Ml Syringe) 40 mg SUBCUT Q24H [facility] Last Admin: 04/29/21 16:38 Dose: 40 mg Documented by: ADIN Sodium Bicarbonate 150 meq/ (Dextrose) 1,000 mls @ 150 mls/hr IV .Q6H40M [facility] Last Admin: 04/30/21 14:15 Dose: 150 mls/hr Documented by: ADIN Morphine Sulfate (Morphine Sulfate 4 Mg/Ml Cartridge) 4 mg IVPUSH Q2H PRN; Protocol PRN Reason: severe pain Last Admin: 04/29/21 23:57 Dose: 4 mg Documented by: FESTUS Ondansetron HCl (Ondansetron Hcl 4 Mg/2 Ml Vial) 4 mg IVPUSH Q8H PRN PRN Reason: Nausea and Vomiting Pharmacy Consult (Consult Rx Vancomycin Dosing) 1 each MISCELLANE DAILY PRN PRN Reason: Consult order Sodium Chloride (0.9 % Sodium Chloride Flush 3 Ml Syringe) 3 ml IVFLUSH QSHIFT [facility] Last Admin: 04/30/21 08:43 Dose: Not Given Documented by: ADIN Non-Admin Reason: IV Running Labs CBC & Chem 7: 04/29/21 06:29 04/30/21 06:55 Labs: Laboratory Results - last 24 hr 04/29/21 04/30/21 18:07 06:55 Anion Gap 9 L Estim Creat Clear Calc 93.3 Estimated GFR > 60 Random Glucose 107 Calcium 8.8 Total Creatine Kinase 9081 H > 3971 H D Microbiology Microbiology Results: Microbiology 04/27/21 21:27 Blood Culture - Preliminary Blood - Venous No growth after 48 hours. 04/27/21 21:27 Blood Culture - Preliminary Blood - Venous No growth after 48 hours. Assessment and Plan (1) Opioid use disorder: Status: Acute (2) Accidental heroin overdose: Status: Acute (3) Hypothermia due to exposure: Status: Acute (4) ESMER (acute kidney injury): Status: Acute (5) Rhabdomyolysis: Status: Acute Plan hospital d#3 41yo M with opioid and cocaine use disorder presenting after overdose and being packed with ice by his mother in attempt to wake him up.? Reversed with naloxone by EMS and brought in hypothermic with lactic acidosis, which have all resolved.? Found to have rhabdomyolysis. # RLE swelling - Doppler to r/o DVT - discussed with Vascular Surgery; not compartment syndrome # rhabdomyolysis - likely due to cocaine + being down after opioid overdose.?continue isotonic bicarbonate infusion and recheck CPK in am # lactic acidosis # hypothermia # ESMER - resolved in the ED # opioid use disorder # cocaine use disorder - Addiction Med + CARE Team consults - resumed home dose of Suboxone 8/2 mg bid - HIV negative. he is HBV immune.? HCV Ab historically positive; rescreening with viral load [pending] # VTE ppx - LMWH Quality Stroke Does the patient have a stroke diagnosis?: No VTE Prior VTE?: No VTE Risk Level:: Medical - moderate - high VTE Device Contraindication: N/A - Device Ordered VTE Drug Contraindication: N/A - Med Ordered
[2021-04-30 19:22] VITALS: BP 123/80; PULSE 69; RESP 18; TEMP 36.6; O2SAT 99
[2021-04-30] MEDS: oxyCODONE HCl Immed Release 5 MG TABLET PO (19:49)
[2021-04-30 23:45] VITALS: BP 135/89; PULSE 59; RESP 14; O2SAT 95
[2021-05-01] MEDS: Sodium Bicarbonate 8.4% 150 MEQ in Dextrose 5 % 850 ML IV ×2 (03:19→10:50)
[2021-05-01] MEDS: oxyCODONE HCl Immed Release 5 MG TABLET PO ×3 (03:59→19:47)
[2021-05-01 07:47] LABS: Blood Urea Nitrogen 12 mg/dL (9-16); Creatinine Clr Calc Pharmacy 99.8; Estimated Glomerular Filt Rate > 60; Glucose Random 105 mg/dL (60-115)
[2021-05-01 07:58] LABS: Anion Gap 10 (12-20); Carbon Dioxide 39 mmol/L (22-29); Chloride 98 mmol/L (96-108); Potassium 3.7 mmol/L (3.3-5.1); Sodium 143 mmol/L (135-145)
[2021-05-01 08:22] VITALS: BP 139/86; PULSE 64; RESP 14; TEMP 36.6; O2SAT 99
[2021-05-01] MEDS: Buprenorphine/Naloxone 8/2 mg FILM 1 FILM SUBLINGUAL ×2 (08:32→20:54)
--- NOTE | 2021-05-01 09:47 | PC.NURSE ---
Pt A&Ox3, no pain at this time. R calf remains tight at this time. + pedal pulse. Ambulates independently in the unit. Medicated as per MAR orders, awaiting MD reply for pt's complaint of constipation at this time. Call francis within reach. Will continue to monitor.
[2021-05-01] MEDS: Docusate Sodium 100 MG CAPSULE PO (10:50)
[2021-05-01 14:40] VITALS: BP 129/67; PULSE 84; RESP 14; TEMP 36.7; O2SAT 100
[2021-05-01] MEDS: Enoxaparin Sodium 40 MG/0.4 ML SYRINGE SUBCUT (15:14)
--- NOTE | 2021-05-01 15:44 | HO.PM.IMPN ---
Subjective Subjective Date of Service: 05/01/21 Interval History: No acute issues overnight Review of Systems Denies CP Denies SOB Denies N/V/D Physical Exam Vital Signs: Vital Signs: Last Vital Signs Temp 98.0 F 05/01/21 14:40 Pulse 84 05/01/21 14:40 Resp 14 05/01/21 14:40 BP 129/67 05/01/21 14:40 Pulse Ox 100 05/01/21 14:40 BMI result Body Mass Index 24.2 Const: Other: NAD Resp: Other: Clear A/P. No R/R/W Cardio: Other: -S4 +S1/S2 -S3 MRG GI: Other: soft NT/ND NABS Extrem: Other: no edema bilat Objective Data Active Medications Acetaminophen (Acetaminophen 325 Mg Tablet) 650 mg PO Q6H PRN PRN Reason: Pain, Mild (Pain Scale 1-3) Buprenorphine/Naloxone (Buprenorphine/Naloxone 8/2 Mg Film) 1 film SUBLINGUAL BID [facility] Last Admin: 05/01/21 08:32 Dose: 1 film Documented by: ADIN Docusate Sodium (Docusate Sodium 100 Mg Capsule) 100 mg PO BID [facility] Last Admin: 05/01/21 10:50 Dose: 100 mg Documented by: ADIN Enoxaparin Sodium (Enoxaparin Sodium 40 Mg/0.4 Ml Syringe) 40 mg SUBCUT Q24H [facility] Last Admin: 05/01/21 15:14 Dose: 40 mg Documented by: ADIN Ondansetron HCl (Ondansetron Hcl 4 Mg/2 Ml Vial) 4 mg IVPUSH Q8H PRN PRN Reason: Nausea and Vomiting Oxycodone HCl (Oxycodone Hcl Immed Release 5 Mg Tablet) 5 mg PO Q4H PRN PRN Reason: severe pain Last Admin: 05/01/21 15:14 Dose: 5 mg Documented by: ADIN Sodium Chloride (0.9 % Sodium Chloride Flush 3 Ml Syringe) 3 ml IVFLUSH QSHIFT [facility] Last Admin: 05/01/21 09:45 Dose: Not Given Documented by: ADIN Non-Admin Reason: IV Running Labs CBC & Chem 7: 04/29/21 06:29 05/01/21 06:52 Labs: Laboratory Results - last 24 hr 05/01/21 06:52 Anion Gap 10 L Estim Creat Clear Calc 99.8 Estimated GFR > 60 Random Glucose 105 Calcium 9.0 Total Creatine Kinase 4434 H Assessment and Plan (1) Rhabdomyolysis: Status: Acute (2) Opioid use disorder: Status: Acute Plan 41yo M with opioid and cocaine use disorder presenting after overdose and being packed with ice by his mother in attempt to wake him up.? Reversed with naloxone by EMS and brought in hypothermic with lactic acidosis, which have all resolved.? Found to have rhabdomyolysis. 1.Rhabdomyolysis - likely due to cocaine + being down after opioid overdose.? - IVFs overnoght -recheck CPK in am 2.Opioid use disorder - Addiction Med + CARE Team consults - resumed home dose of Suboxone 8/2 mg bid # VTE ppx - LMWH Quality Stroke Does the patient have a stroke diagnosis?: No VTE Prior VTE?: No VTE Risk Level:: Medical - moderate - high VTE Device Contraindication: N/A - Device Ordered VTE Drug Contraindication: N/A - Med Ordered
[2021-05-01] MEDS: Lactulose 20 GM/30 ML SOLUTION 30 GM PO (17:08)
[2021-05-01] MEDS: 0.9 % Sodium Chloride 1,000 ML 125 ML IVCONT (17:08)
--- NOTE | 2021-05-01 17:18 | PC.NURSE ---
Pt remains constipated, MD made aware, lactulose given as per [facility] orders. Call francis within reach, will continue to monitor.
[2021-05-02] MEDS: 0.9 % Sodium Chloride 1,000 ML 125 ML IVCONT ×2 (00:53→07:31)
[2021-05-02 01:16] VITALS: BP 134/76; PULSE 64; RESP 16; TEMP 36.7; O2SAT 94
[2021-05-02 07:25] VITALS: BP 132/88; PULSE 56; RESP 18; TEMP 36.8; O2SAT 99
[2021-05-02] MEDS: Docusate Sodium 100 MG CAPSULE PO (07:30)
[2021-05-02] MEDS: Buprenorphine/Naloxone 8/2 mg FILM 1 FILM SUBLINGUAL (07:30)
[2021-05-02] MEDS: oxyCODONE HCl Immed Release 5 MG TABLET PO (07:30)
[2021-05-02 07:36] LABS: MANUAL DIFF FLAG NO
[2021-05-02 07:39] LABS: Basophils Percent Auto 0.5 % (0-2); Eosinophils Absolute Auto 0.3 X10*3/uL (0.0-0.4); Eosinophils Percent Auto 4.6 % (0-4); Hemoglobin 12.9 g/dl (14.0-18.0); Imm Gran Abs Auto 0.01 X10*3/uL (0.00-0.03); Imm Gran Pct Auto 0.2 % (0.0-0.4); Lymphocytes Absolute Auto 1.9 X10*3/uL (1.2-4.9); Lymphocytes Percent Auto 33.2 % (20-40); Mean Corpuscular HGB Conc 31.5 g/dl (31.0-36.0); Mean Corpuscular Hemoglobin 27.6 pg (27.0-33.0); Mean Corpuscular Volume 87.8 fL (80.0-98.0); Mean Platelet Volume 9.7 fL (9.4-12.4); Monocytes Absolute Auto 0.7 X10*3/uL (0.1-1.2); Neutrophils Absolute Auto 2.8 x10*3/uL (2.0-8.3); Neutrophils Percent Auto 49.5 % (45-73); Platelet Count 167 X10*3/uL (160-400); Red Blood Count 4.67 X10*6/uL (4.60-5.80); Red Cell Distribution Width 12.9 % (11.0-16.0); White Blood Count 5.7 X10*3/uL (4.8-10.8)
--- NOTE | 2021-05-02 13:45 | PM.DS ---
DS: Providers Provider Date of Service: 05/02/21 Date of admission: 04/28/21 13:57 Date of discharge: 05/02/21 Primary care physician: Karmen Anguiano Consults: 04/28/21 13:38 Addiction Medicine Routine Consulting Provider: Maricarmen Cox Reason for consultation: heroin/cocaine Consult to Care Team Routine Comment: Reason for consultation: heroin/cocaine DS: Diagnosis Discharge Diagnosis (1) Rhabdomyolysis: Status: Acute (2) Opioid use disorder: Status: Acute DS: Summary Hospital Course Hospital Course: ?41yo M with opioid use disorder, previously on Suboxone, with ongoing IN cocaine and heroin/fentanyl abuse, was found unresponsive by his mother at home.? She tried to wake him up by stuffing ice cubes into his pants without success.? She called EMS and he was given 4 mg of IN nalaoxone, and he woke up promptly.? He arrived in the ED hypothermic at 91.9 rectal and amnestic to the events just prior to the overdose. ? He was placed on the Tami Hugger and given warm IV fluids.? Lactate was 6.1 and he was given 30 cc/kg of normal saline and given vancomycin and cefepime.? He had no skin needle track ortiz and denied injection drug use, insisting he only uses IN. ? He has had 4 ED visits for opioid overdose in 2020.? CPK went from 871 to 9668, over 12 hr. ? SCr went from 1.43 to 0.94.? Lactate 6.1 to 1.1.? Temperature normalized and he is now 98.9.? He was started on NS and isotonic bicarbonate infusion.? Noted to have R calf pain/tenderness and tightness and difficulty moving the R leg.? No discoloration or loss of sensation.? Dr Ny from [facility] Surgery was consulted by the ED due to concern for compartment syndrome, but this was thought unlikely at this time.? He is now able to move the leg.? Denies back pain.? No fever. Hospital Course Admitted with IVFs. CPK trended downwardafter 48-72 hrs. No overt withdraw. CPK stable day of discharge;`calf pain resolved.D/C home to complete oral course Doxycycline. Time Spent with Patient Time attestation: Total time spent providing and/or coordinating discharge services: Discharge coordination time: Greater than 30 minutes Quality: Stroke Does the patient have a stroke diagnosis?: No Physical Exam Vital Signs: Vital Signs: Last Vital Signs Temp 98.3 F 05/02/21 07:25 Pulse 56 05/02/21 07:25 Resp 18 05/02/21 07:25 BP 132/88 05/02/21 07:25 Pulse Ox 99 05/02/21 07:25 BMI result Body Mass Index 24.2 Const: Other: NAD Resp: Other: Clear A/P. No R/R/W Cardio: Other: -S4 +S1/S2 -S3 MRG GI: Other: soft NT/ND NABS Extrem: Other: no edema bilat DS: Data Data Completed and Pending Labs on day of discharge: Laboratory Results - last 24 hr 05/02/21 05/02/21 07:11 07:11 WBC 5.7 RBC 4.67 Hgb 12.9 L Hct 41.0 L MCV 87.8 MCH 27.6 MCHC 31.5 RDW 12.9 Plt Count 167 MPV 9.7 Immature Gran % (Auto) 0.2 Neut % (Auto) 49.5 Lymph % (Auto) 33.2 [place] % (Auto) 12.0 H Eos % (Auto) 4.6 H Baso % (Auto) 0.5 Lymph # (Auto) 1.9 [place] # (Auto) 0.7 Eos # (Auto) 0.3 Baso # (Auto) 0.0 Abs Immat Gran (auto) 0.01 Absolute Neuts (auto) 2.8 Absolute Nucleated RBC 0.000 Nucleated RBC % (auto) 0.0 Total Creatine Kinase 2435 H D Preliminary micro results at discharge 04/27/21 21:27 Blood Culture - Preliminary Blood - Venous No growth after 48 hours. 04/27/21 21:27 Blood Culture - Preliminary Blood - Venous No growth after 48 hours. Discharge Plan Discharge Patient Disposition: Home, Self-Care Discharge Diagnosis: Accidental opiate overdose Referrals: Karmen Anguiano [Primary Care Provider] - 1 Week Discharge Medications: New naloxone [Narcan] 4 mg/actuation spray,non-aerosol 4 mg intranasal Q2M PRN (Reason: opioid overdose) Qty: 2 2RF Rx Instructions: spray 1 dose into ONE nostril; alternate nostrils w each dose until help arrives doxycycline hyclate 100 mg tablet 100 mg PO BID Qty: 20 0RF Continued buprenorphine-naloxone [Suboxone] 8-2 mg film 1 strip sublingual BID 0RF diphenhydramine-acetaminophen [Tylenol PM Extra Strength] 25-500 mg Tablet 1 tab PO BEDTIME PRN (Reason: Sleep) 0RF Discharge Orders: Discharge Order (Routine); Ordered 05/02/21 Ordered By: tJ Moeller Diet: advance to usual diet Activity on Discharge: As tolerated Stand Alone Forms: Patient Portal Discharge page, Work/School Release Activity Restrictions/Additional Instructions: Do not use heroin, it can kill you Recommend detox Care Plan Goals: No opiate Health Concerns: Follow up as scheduled Plan of Treatment: Narcan nasally sent to pharmacy Assessment: as per DC summary Patient Instructions: Polysubstance Abuse (ED) Discharge Date/Time: 05/02/21 12:26
[2021-05-02 17:17] LABS: HCV Log PCR <1.18 log IU/mL; HepC Viral Load <15 IU/mL
== END 2021-05-02 12:26 | disposition home or self-care (01) | DRG 816 ==
LOC: HO.ED 04-28 12:59 → HO.EDOVER 04-28 14:07
PROVIDERS: Physician Assistant; Admitting Provider Family Medicine; Emergency Provider Emergency Medicine; PCP Nurse Practitioner; Visit Provider Hospitalist
DX: T40.1X1A Poisoning by heroin, accidental (unintentional), initial encounter (principal); N17.9 Acute kidney failure, unspecified; T68.XXXA Hypothermia, initial encounter; M62.82 Rhabdomyolysis; E87.2 Acidosis; Y92.9 Unspecified place or not applicable; Z20.822 Contact with and (suspected) exposure to COVID-19; F11.20 Opioid dependence, uncomplicated; Z79.899 Other long term (current) drug therapy; X31.XXXA Exposure to excessive natural cold, initial encounter
CPT/HCPCS: 36415; 71045; 80048; 80076; 80307; 81001; 82077; 82550; 83605; 83735; 85025; 85027; 85610; 85652; 86140; 87040; 87389; 87522; 87635; 93970; 96361; 96365; 96375; 99285; 99291; J0692; J1650; J2270; J3370

== ENCOUNTER → 2022-04-16 13:35 | Outpatient (BNVA) | payer MEDICAID, SELFPAY | PROVIDERS: PCP Pediatrics; Referring Provider Pediatrics; Visit Provider Surgery | DX: R59.0 Localized enlarged lymph nodes (principal) | CPT/HCPCS: 99202 ==

== ENCOUNTER 2022-06-02 10:05 | Emergency (ER) | payer MEDICAID, SELFPAY | END 2022-06-02 11:18 | disposition left against medical advice (07) | PROVIDERS: Emergency Provider Emergency Medicine | DX: Z76.0 Encounter for issue of repeat prescription (principal) ==

== ENCOUNTER 2023-08-25 14:47 | Outpatient (REF) | payer MEDICAID, SELFPAY ==
[2023-08-25 16:51] LABS: Alanine Aminotransferase 13 U/L (0-40); Albumin Level 4.2 g/dL (3.5-5.0); Alkaline Phosphatase 73 U/L (39-117); Anion Gap 14 (12-20); Aspartate Amino Transferase 24 U/L (5-37); Bilirubin Total 0.3 mg/dL (0.0-1.0); Blood Urea Nitrogen 20 mg/dL (9-16); Calcium 9.2 mg/dL (8.4-10.2); Carbon Dioxide 26 mmol/L (22-29); Chloride 108 mmol/L (96-108); Estimated Glomerular Filt Rate > 60; Glucose Random 75 mg/dL (60-115); Potassium 4.2 mmol/L (3.3-5.1); Sodium 144 mmol/L (135-145); Total Protein 7.2 g/dL (6.5-8.0)
== END 2023-08-25 14:48 | disposition home or self-care (01) ==
LOC: HO.HHCL 14:47
PROVIDERS: Visit Provider General Practice
DX: F41.8 Other specified anxiety disorders (principal)
CPT/HCPCS: 36415; 80053

== ENCOUNTER 2023-10-27 08:33 | Outpatient (AMB) | payer MEDICAID, SELFPAY ==
--- NOTE | 2023-10-27 08:59 | MHC.OFFVIS ---
Vital Signs 10/27/23 09:05 Height 5 ft 4 in Weight 140 lb BMI 24.0 Handedness Right Intake Visit Reasons: N/P Left middle trigger finger Intake Note: Javad is a 43 year old right hand dominant male who presents today as a new patient for a evaluation of his Left middle trigger finger. Patient reports his symptoms started about 2 years. He states that it is worse at night and when it is cold out. Hx of surgery in his left middle finger due to a fx a couple years ago. Having tingling on the volar aspect of the middle finger. Industrial Radiographer Services: Industrial Radiographer Present (Carol ([id number])) Allergies No Known Allergies [No Known Allergies*] Allergy (Verified 10/27/23 09:03) HPI HPI N/P Left middle trigger finger: Details: Patient is a 43-year-old male who presents for evaluation of flexion contracture of left middle finger, ongoing for approximately 3-4 years. The patient reports that, approximately 4-5 years ago, he had a significant laceration over the PIP joint of the left middle finger, and had to have surgery on this, although he is unsure what the exact procedure was. Ongoing for approximately 3-4 years, the patient reports that he is unable to extend the left middle finger fully. The patient also reports a electricity like sensation in the distal portion of the left middle finger. The patient reports that it is painful on the volar aspect of the left middle finger PIP joint when he attempts passive full extension. The patient has no other acute complaints or concerns at this time [facility] Medical History History of hepatitis C Opioid use disorder Social History (Updated 10/27/23 @ 09:04 by Gisele Maldonado) Alcohol intake: current Alcohol intake frequency: holidays/special occasions only Patient Tobacco Use Status: Current everyday Tobacco user Substance Use Type: Crack/Cocaine, Heroin, Marijuana and Opiates service: No Current occupational status: unemployed Current occupation: right hand dominant Review of Systems Const All systems reviewed & are unremarkable except as noted in HPI and below Physical Exam Vital Signs: BMI result Body Mass Index 24.0 Assessment & Plan Assessment & Plan (1) 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
[2023-10-27 09:05] VITALS: BMI 24.0
== END 2023-10-27 09:34 | disposition home or self-care (01) ==
PROVIDERS: PCP General Practice
DX: M24.542 Contracture, left hand (principal)
CPT/HCPCS: 99203

== ENCOUNTER → 2023-10-27 08:33 | Outpatient (BNVA) | payer MEDICAID, SELFPAY | PROVIDERS: PCP General Practice | DX: M24.542 Contracture, left hand (principal) | CPT/HCPCS: 99212 ==

== ENCOUNTER 2023-11-12 10:25 | Outpatient (RCR) | payer MEDICAID, SELFPAY ==
--- NOTE | 2023-11-12 14:37 | MHC.OT.EP ---
[address] [phone] Occupational Therapy Plan of Care Patient Name: Javad Conklin Date of Evaluation: 11/12/23 Diagnosis: Contracture of L MF Pain Location: L MF Pain Score: 7 Pain Scale Used: Numeric (0 - 10) Aggravating Factors: Motion of his L hand Alleviating Factors: Assessment: Pt is a 43 yr old R hand dominant male who reports injuring his L MF years ago while joyce. He reports he had surgery years ago to repair a lacerated tendon, and had OT therapy w/ a splint; but is unable to extend his MF, and over the years it has gotten progressively worse. He reports at first it was a slight lag but it has increased and he is unable to extend his digit at all and has pain 7/10 at rest. Pt saw the PA recently at [facility] and he was referred to skilled OT therapy to decrease pain, increase ROM, strength, and functional use of his L hand Frequency and Duration: The patient will be seen 2xs a week for 4 weeks Short Term Goals: Pt will be compliant w/ orthoses wear 20 min a day for LLD (light pressure) 3 xs a day Pt will be compliant w/ HEP Pt will report 2/10 pain w/ rest Pt will be complaint w/ scar massage Fpc Goals: Pt will have HYMAN of his MF of 160 Pt will report 1/10 pain w/ use of his L hand Treatment Plan: Therapeutic Exercise Therapeutic Activity Home Exercise Program Splinting Neuro Re-ed Patient Education Desensitization/Sensory Re-ed Edema Control ADL Training Ultrasound NMES Iontophoresis Paraffin Fluidotherapy MHP Cold Packs Joint Mobilization Soft Tissue Mobilization Kinesiotaping Other (see comments) Electronically Signed By: Merced Ponce OTR/L Please Sign and return to therapist. Thank you once again for your referral.
== END 2024-06-09 09:23 | disposition home or self-care (01) ==
LOC: HO.OT 10:25
PROVIDERS: PCP General Practice
DX: M24.541 Contracture, right hand (principal)
CPT/HCPCS: 97035; 97166; 97535; 97760